=== PATIENT | female | born 1935 | race Caucasian/White ===

== ENCOUNTER 2017-08-14 13:25 | Inpatient (IN) ==
--- NOTE | 2017-08-14 14:14 | Emergency Department Note ---
Female Urogenital HPI - General Chief complaint: Urogenital-Female Stated complaint: rectal prolapse Time Seen by Provider: 08/14/17 14:05 Source: patient Mode of arrival: ambulatory Limitations: no limitations - History of Present Illness HPI Narrative: 81 year old female is complaining of rectal prolapse for 2 days. She has been seen here for the same problem but has not been able to get an appointment with [facility] per Dr. Mckinney. She states she has not had a BM for 2 weeks and has stopped eating. She states her right leg started swelling a few days ago. Dr. Aden has consulted and apparently this needs to be taken care of in [place] due to the patients risk factors and the extent of the prolapse. Radiation: non-radiating (There is rectal pain, no dysuria. ) Severity: moderate Duration: intermittent Patient : No - Related Data Previous Rx's Medication Instructions Recorded polyethylene glycol 3350 17 17 g PO QDAY #30 each 11/04/15 gram/dose oral powder albuterol sulfate HFA 90 2 puff INHALATION TID #8.5 g 12/03/16 mcg/actuation aerosol inhaler budesonide 1 mg/2 mL suspension 0.5 mg INHALATION BID 30 Days #60 12/03/16 for nebulization ml ipratropium-albuterol 0.5 mg-3 3 ml INHALATION Q6H PRN 30 Days 12/03/16 mg(2.5 mg base)/3 mL nebulization #360 ml soln pantoprazole 40 mg tablet,delayed 40 mg PO QAMAC #30 tab 12/03/16 release alendronate 70 mg tablet 70 mg PO QWEEK #4 tab 12/14/16 calcium carbonate-vitamin D3 600 1 cap PO TID 30 Days #90 cap 12/14/16 mg (1,500 mg)-500 unit capsule levothyroxine 75 mcg tablet 75 mcg PO QDAY #30 tab 03/10/17 hydrochlorothiazide 12.5 mg tablet 12.5 mg PO QDAY #30 tab 04/01/17 Docusate Sodium [Colace] 100 mg PO BID #60 capsule 06/18/17 risperidone 0.5 mg tablet 0.5 mg PO QHS #30 tab 06/21/17 venlafaxine ER 75 mg 75 mg PO DAILY #30 tab 06/21/17 tablet,extended release 24 hr Polyethylene Glycol 3350 [Miralax] 17 gm PO BID #60 packet 07/19/17 Allergies Allergy/AdvReac Type Severity Reaction Status Date / Time amlodipine AdvReac Unknown Dizziness Verified 08/10/17 10:49 Review of Systems Constitutional: Denies: fever, chills Cardiovascular: Denies: chest pain Respiratory: Denies: cough Gastrointestinal: Reports: other (rectal prolapse, severe. Unable to deficate so stopped eating) Genitourinary: Denies: dysuria Integumentary: Reports: other (swelling and erythema of the right lower extremity) Past Medical History - Past Medical History Medical history: Reports: COPD, GERD, GI bleed, glaucoma, osteoporosis, renal disease, thyroid disease, other (Rectal prolapse, hearing loss) Psychiatric history: Reports: anxiety, depression Surgical history ED: Reports: hysterectomy, orthopedic, other (Mandibular). Denies: herniorrhaphy - Social History smoking status: Current some day smoker Alcohol use: Reports: Rarely Drug use: Reports: none Physical Exam Limitations: no limitations General appearance: alert (Imaciated appearing. ), in no apparent distress Head: atraumatic, normocephalic Eye: Present: normal appearance Chest: Present: normal inspection, symmetric chest wall rise Respiratory: Present: normal lung sounds bilaterally Cardiovascular: Present: regular rate, normal rhythm Abdominal: Present: soft. Absent: distention, tenderness, guarding Rectal: Present: other (rectum is prolapsed out about [address] Mckinney was able to reduce it back inside.) Course Course Narrative: I spoke with the daughter, Isabela, and she said the appointment in [place] has never taken place due to lack of being contacted by the surgeons office. Margie is still living alone and the family is bringing her food and checking in on her. I spoke with Dr. Aden at 1522 and told him how she appears to be going downhill , unable to deficate for fear of her bowel herniating. He agreed to admit her. The patient desires to be a full code to see her grandchildren grow up. Vital Signs Temperature 97.8 F 08/14/17 13:26 Pulse Rate 80 08/14/17 13:26 Respiratory Rate 18 08/14/17 13:26 Blood Pressure 144/77 08/14/17 13:26 Pulse Oximetry (%) 98 08/14/17 13:26 Temperature 97.8 F 08/14/17 17:11 Pulse Rate 98 H 08/14/17 17:11 Respiratory Rate 16 08/14/17 17:11 Blood Pressure 163/77 08/14/17 17:11 Pulse Oximetry (%) 97 08/14/17 17:11 Urogenital-Female - Lab Data Result diagrams: 08/14/17 14:33 08/14/17 14:33 Lab Results 08/14/17 08/14/17 Range/Units 14:33 14:33 WBC 5.9 (4.5-11.0) K/mcL RBC 3.31 L (4.00-5.20) M/mcL Hgb 9.4 L (12.0-15.0) g/dL Hct 28.9 L (36.0-48.0) % MCV 87.3 (80.0-100.0) fL MCH 28.5 (26.0-34.0) pg MCHC 32.7 (31.0-36.0) g/dL RDW 13.8 (11.5-14.5) % Plt Count 566 H (140-440) K/mcL MPV 6.6 L (7.4-10.4) fL Total Counted 100 Seg Neutrophils % 56 (38-78) % Band Neutrophils % 2 (0-10) % Lymphocytes % 27 (15-49) % Monocytes % (Manual) 12 (1-12) % Eosinophils % (Manual) 3 (0-7) % Platelet Estimate Pi (NORMAL) RBC Morphology Normal (NORMAL) Sodium 142 (133-145) mmol/L Potassium 4.1 (3.3-5.1) mmol/L Chloride 104 (96-108) mmol/L Carbon Dioxide 29 (22-30) mmol/L Anion Gap 9.0 (8-16) BUN 25 H (8-23) mg/dl Creatinine 0.6 (0.6-1.1) mg/dl GFR Calculation 87 Glucose 85 (70-105) mg/dL Calcium 8.1 L (8.6-10.4) mg/dl Total Bilirubin < 0.2 (0.0-1.0) mg/dL AST 25 (0-37) U/l ALT 17 (0-40) U/l Alkaline Phosphatase 116 (39-117) U/L Total Protein 6.1 (5.9-8.4) gm/dL Albumin 3.0 L (3.2-5.2) gm/dL Globulin 3.1 (2.2-3.7) gm/dL Albumin/Globulin Ratio 1.0 (1.0-2.3) Disposition Pt seen by [facility]/PA only: No Disposition: Xfer As Inpt ([facility])
[2017-08-14 14:54] LABS: Mean Cell Volume 87.3 fL (80.0-100.0); Mean Corpuscular HGB Conc 32.7 g/dL (31.0-36.0); Mean Corpuscular Hemoglobin 28.5 pg (26.0-34.0); Platelet Count 566 K/mcL (140-440); RBC 3.31 M/mcL (4.00-5.20); Red Cell Distribution Width 13.8 % (11.5-14.5)
--- NOTE | 2017-08-14 14:59 | XRay Report ---
CLINICAL INFORMATION: Rectal prolapse. Abdominal pain. TECHNIQUE: Supine and upright abdomen COMPARISON: Previous examinations dated 08/10/2017 and 09/03/2014. Previous CT scan dated 08/12/2016 FINDINGS: Severe left convex thoracolumbar scoliosis. Findings consistent with constipation and probable distal fecal impaction. No dilated gas-filled small bowel. No mechanical small bowel obstruction. No air-fluid levels. No pneumoperitoneum. No biliary or portal venous gas. No pneumatosis. No pathologic calcifications. Abdomen is unchanged since 08/10/2017 IMPRESSION: 1. Constipation and probable fecal impaction 2. No mechanical small bowel obstruction. No acute abnormality. No interval change since 08/10/2017 Interpreted and Authenticated by: Cong Han 08/14/17
[2017-08-14 15:22] LABS: ALT/SGPT 17 U/l (0-40); Alkaline Phosphatase 116 U/L (39-117); Blood Urea Nitrogen 25 mg/dl (8-23)
[2017-08-14 15:35] LABS: Band Neutrophils % 2 % (0-10); Eosinophils % (Manual) 3 % (0-7); Lymphocytes % 27 % (15-49); Monocytes % (Manual) 12 % (1-12); Platelet Estimate PI (NORMAL); RBC Morphology NORMAL (NORMAL); Segmented Neutrophils % 56 % (38-78)
[2017-08-14] MEDS ORDERED: ONDANSETRON 4 MG/2 ML VIAL IV PRN (15:47)
[2017-08-14] MEDS: 0.9 % SODIUM CHLORIDE 1,000 ML IV SCH ×2 (15:49→17:04)
[2017-08-14] MEDS ORDERED: IPRATROPIUM/ALBUTEROL 3 ML AMPUL.NEB NEB PRN (18:27)
[2017-08-14] MEDS ORDERED: 0.9 % SODIUM CHLORIDE 250 ML IV SCH (18:30)
--- NOTE | 2017-08-14 18:37 | General Surg History&Physical ---
History of Present Illness Patient information: Note initiated : 08/14/17 at 6:35 pm Service Date, if different from initiated Date: [] Patient: Margie Palm a 81 y/o F admitted on 08/14/17 for rectal prolapse. Chief Complaint: [Rectal prolapse with intestinal obstruction] HPI: Ms. Palm is a 81 year old F who is seen in the emergency room for severe recurrent rectal prolapse. I have seen her 4 times previously. She presented in early May with large rectal prolapse. She has had 5 ER visits since then with reduction of the prolapse but it has become worse and it now protrudes whenever she stands up. It does not spontaneously resolve. She states that she has had complete prolapse for the past 3 days and has had decreased p.o. intake which has resulted in dehydration. She has not had a bowel movement for 2 weeks and she has crampy abdominal pain and severe. Anal pain due to the prolapse. The prolapsed tissue is severely edematous and extremely painful. There are no apparent ulcerations. Patient is admitted and I will discuss with the family the need for operative therapy. With the severity of her anal sphincter laxity it would be best for her to have a colostomy. Review of Systems - Constitutional lethargy, malaise, weakness, weight loss - EENT Nose, mouth and throat: abnormal hearing, disequilibrium, dizziness (Really) - Cardiovascular dyspnea, dyspnea on exertion, edema - Respiratory dyspnea on exertion, other (Shortness of breath) - Gastrointestinal abdominal pain, hematochezia, other (Recurrent rectal prolapse) - Genitourinary Genitourinary: pelvic pain, prolapse symptoms, urinary incontinence, urinary urgency - Musculoskeletal abnormal gait, arthralgias, joint swelling, loss of height, myalgias, stiffness , other (Severe scoliosis) - Integumentary no changing lesions, no new lesions, no pruritus, no rash - Neurological abnormal hearing, disequilibrium, loss of vision - Psychiatric abnormal sleep pattern, auditory hallucinations, confusion, hallucinations - Endocrine fatigue, no palpitations - Hematologic/Lymphatic no easy bleeding, no easy bruising, no lymphadenopathy - Allergic/Immunologic no tongue swelling, no throat swelling, no uticaria, no wheezing, no lip swelling Past History Past medical history: Chronic obstructive lung disease Chronic depression Constipation Severe scoliosis Gastroesophageal reflux disease Left eye retinal artery occlusion Chronic kidney disease 4 Peripheral neuropathy Auditory hallucinations Hypothyroidism Past surgical history: Hysterectomy Mandibular surgery Ear surgery Past family history: Coronary artery disease multiple family members Diabetes mellitus Past social history: Lives alone Former smoker Denies alcohol use Denies drug use Medications and Allergies Home Medications Medication Instructions Recorded Confirmed Type albuterol sulfate HFA 90 2 puff INHALATION TID #8.5 g 12/03/16 08/14/17 Rx mcg/actuation aerosol inhaler pantoprazole 40 mg tablet,delayed 40 mg PO QAMAC #30 tab 12/03/16 08/14/17 Rx release alendronate 70 mg tablet 70 mg PO QWEEK #4 tab 12/14/16 08/14/17 Rx calcium carbonate-vitamin D3 600 1 cap PO TID 30 Days #90 cap 12/14/16 08/14/17 Rx mg (1,500 mg)-500 unit capsule levothyroxine 75 mcg tablet 75 mcg PO QDAY #30 tab 03/10/17 08/14/17 Rx Docusate Sodium [Colace] 100 mg PO BID #60 capsule 06/18/17 08/14/17 Rx risperidone 0.5 mg tablet 0.5 mg PO QHS #30 tab 06/21/17 08/14/17 Rx venlafaxine ER 75 mg 75 mg PO DAILY #30 tab 06/21/17 08/14/17 Rx tablet,extended release 24 hr Polyethylene Glycol 3350 [Miralax] 17 gm PO BID #60 packet 07/19/17 08/14/17 Rx Multivitamin [One Daily] 1 tab PO DAILY 08/15/17 08/15/17 History Allergies Allergy/AdvReac Type Severity Reaction Status Date / Time amlodipine AdvReac Unknown Dizziness Verified 08/10/17 10:49 Exam Temp Pulse Resp BP Pulse Ox 97.8 F 98 H 16 163/77 97 08/14/17 17:11 08/14/17 17:11 08/14/17 17:11 08/14/17 17:11 08/14/17 17:11 - General physical appearance cachectic, chronically ill - Eyes normal ocular movement, other (Absent vision left eye) - ENT normal pinna, normal nares, normal mucosa, decreased hearing - Head Head exam IM: Present: atraumatic, normal inspection, normocephalic - Neck no masses, no bruits, trachea midline, no venous distension - Cardiovascular Cardiovascular exam IM: Present: normal rate and rhythm, JVD, RRR, +S1, +S2. Absent: gallop, systolic murmur, tachycardia - Respiratory normal expansion, normal respiratory effort, clear to auscultation - Abdomen Abdomen: Present: soft, tender, distended (Abdomen is distended across the upper portion in line with dilated colon; active bowel sounds; mild tenderness over upper abdomen; no palpable mass) - Rectum Rectum: Present: other (Absent anal sphincter tone with complete anal rectal prolapse extending 10 cm with excoriation of the prolapsed mucosa and oozing of blood) - Integumentary Present: no rash, no growths, no abnormal pigmentation - Neurologic Present: normal coordination, normal sensation - Musculoskeletal Present: other (Moderately severe scoliosis) - Psychiatric Present: oriented to time, oriented to person Assessment and Plan (1) Constipation by delayed colonic transit Make plans to discuss with family the need for end colostomy and plication of her rectal stump; prolapse temporarily reduce but it does not stay in as long as she is up and mobile Status: Acute (2) Rectal prolapse Status: Acute (3) Chronic kidney disease, stage IV (severe) Status: Chronic (4) COPD (chronic obstructive pulmonary disease) Status: Chronic Comment: 11/2012 Mild obstruction consistent with emphysema (5) Dehydration, mild Status: Acute (6) Depression Status: Chronic Comment: 1960s Managed well with venlafaxine Qualifiers: Depression Type: major depressive disorder Major depression recurrence: recurrent Active/Remission status: currently active Major depression episode severity: mild Qualified Code(s): F33.0 - Major depressive disorder, recurrent, mild (7) Gastroesophageal reflux Status: Chronic Qualifiers: Esophagitis presence: with esophagitis Qualified Code(s): K21.0 - Gastro- esophageal reflux disease with esophagitis (8) Weight loss Status: Chronic
[2017-08-14] MEDS ORDERED: ZOLPIDEM 5 MG TABLET PO PRN (18:48)
--- NOTE | 2017-08-14 18:52 | Emergency Department Note ---
ED Note Addendum Note Addendum: rectal prolAPSE WAS REDUCED EASILY WITHOUT CONSCIOUS SEDATION. CASE DISCUSSED WITH [facility] Stock PT URBAN BE ADMITTED. AGREE WITH DX AND RX.
[2017-08-14] MEDS: risperiDONE 0.25 MG TABLET PO SCH (21:20)
[2017-08-14] MEDS: POLYETHYLENE GLYCOL 3350 17 GM PACKET PO SCH (21:20)
[2017-08-14] MEDS: ALBUTEROL SULFATE 1 PUFF INHALER IH SCH (21:21)
[2017-08-15] MEDS: 0.9 % SODIUM CHLORIDE 1,000 ML IV SCH ×4 (03:44→17:16)
[2017-08-15 05:56] LABS: proBNP 255.9 pg/ml (0-450)
[2017-08-15 06:16] LABS: ALT/SGPT 15 U/l (0-40); Albumin 2.5 gm/dL (3.2-5.2); Albumin/Globulin Ratio 0.9 (1.0-2.3); Alkaline Phosphatase 105 U/L (39-117); Bilirubin,Direct < 0.2 mg/dL (0.0-0.3); Blood Urea Nitrogen 19 mg/dl (8-23); Gamma Glutamyl Transpeptidase 13 U/L (5-36); Uric Acid 2.5 mg/dL (2.5-8.0)
[2017-08-15 06:17] LABS: Prealbumin 13.3 mg/dl (20-40)
[2017-08-15] MEDS: PANTOPRAZOLE 40 MG TABLET PO SCH (07:01)
[2017-08-15] MEDS: LEVOTHYROXINE 75 MCG TABLET PO SCH (07:01)
[2017-08-15] MEDS: VENLAFAXINE 75 MG CAP.XL.24H PO SCH (08:53)
[2017-08-15] MEDS: POLYETHYLENE GLYCOL 3350 17 GM PACKET PO SCH ×2 (08:53→20:24)
[2017-08-15] MEDS: ALBUTEROL SULFATE 1 PUFF INHALER IH SCH ×3 (08:53→20:24)
--- NOTE | 2017-08-15 09:05 | XRay Report ---
INDICATION: Preoperative evaluation TECHNIQUE: AP chest x-ray,portable COMPARISON: Previous chest x-rays dated 04/14/2017, 08/10/2014, 09/11/2013. Previous CT scan dated 12/14/2016 FINDINGS:Severe left convex thoracolumbar scoliosis, unchanged Focal density at the left lung base consistent with chronic left lower lobe atelectasis. This is also stable No acute parenchymal infiltrate. No pulmonary congestion or pulmonary edema. No significant interval change IMPRESSION: 1. Focal density at the left lung base consistent with left lower lobe atelectasis 2. No acute abnormality. No interval change Interpreted and Authenticated by: Cong Han 08/15/17
--- NOTE | 2017-08-15 13:51 | General Surgery Progress Note ---
Subjective Patient reports: feels better, pain is less, tolerating liquids well, no flatus , no bowel movement, afebrile Narrative: Note initiated : 08/15/17 at 1:49 pm Service Date, if different from initiated Date: [] Patient: Margie Palm 81 y/o F admitted on 08/14/17 for rectal prolapse. Chief Complaint: [Patient is stable but she had significant prolapse of her rectum which needed to be reduced. It reduced without difficulty. I had a long talk with her extended family. Discussed the need for colostomy with proctopexy of the rectal stump as the surgery of choice. This would have the less chance for major complications and should not need reoperation. The procedure will be permanent. She has finally accepted the need to have the procedure and it will be scheduled for Wednesday.] Objective Temp Pulse Resp BP Pulse Ox 98.1 F 78 20 145/67 94 08/15/17 11:40 08/15/17 11:40 08/15/17 11:40 08/15/17 11:40 08/15/17 11:40 - Additional Data Intake & Output - Last 24 hours: Intake & Output 08/13/17 08/14/17 08/15/17 08/16/17 05:59 05:59 05:59 05:59 Intake Total 1274 / 1274 480 / 480 Output Total 750 / 750 Balance 1274 / 1274 -270 / -270 Weight 82 lb - General physical appearance no distress, moderate pain, chronically ill - Eyes PERRL - ENT no congestion - Neck no venous distension - Respiratory normal expansion, normal respiratory effort, clear to auscultation - Cardiovascular Cardiovascular exam: Present: normal rate and rhythm, RRR, +S1, +S2. Absent: gallop, JVD - Abdomen soft, distended (Abdomen is mildly distended and tympanitic. She has good active bowel sounds. There is tenderness over the dilated colon.) - Rectum other (4+ major full-thickness prolapse of anal rectal which is reducible; the prolapsed tissue is very edematous and irritated) - Integumentary no rash, no growths, no abnormal pigmentation - Neurologic normal coordination, normal sensation - Musculoskeletal normal gait, normal posture - Labs 08/14/17 14:33 08/15/17 04:30 Diabetes panel 08/14/17 08/15/17 Range/Units 14:33 04:30 Sodium 142 144 (133-145) mmol/L Potassium 4.1 3.9 (3.3-5.1) mmol/L Chloride 104 108 (96-108) mmol/L Carbon Dioxide 29 27 (22-30) mmol/L BUN 25 H 19 (8-23) mg/dl Creatinine 0.6 0.6 (0.6-1.1) mg/dl Glucose 85 80 (70-105) mg/dL Calcium 8.1 L 8.0 L (8.6-10.4) mg/dl AST 25 22 (0-37) U/l ALT 17 15 (0-40) U/l Alkaline Phosphatase 116 105 (39-117) U/L Total Protein 6.1 5.2 L (5.9-8.4) gm/dL Albumin 3.0 L 2.5 L (3.2-5.2) gm/dL Triglycerides 74 (<150) mg/dl Calcium panel 08/14/17 08/15/17 Range/Units 14:33 04:30 Calcium 8.1 L 8.0 L (8.6-10.4) mg/dl Phosphorus 3.0 (2.7-4.5) mg/dL Albumin 3.0 L 2.5 L (3.2-5.2) gm/dL Pituitary panel 08/14/17 08/15/17 Range/Units 14:33 04:30 Sodium 142 144 (133-145) mmol/L Potassium 4.1 3.9 (3.3-5.1) mmol/L Chloride 104 108 (96-108) mmol/L Carbon Dioxide 29 27 (22-30) mmol/L BUN 25 H 19 (8-23) mg/dl Creatinine 0.6 0.6 (0.6-1.1) mg/dl Glucose 85 80 (70-105) mg/dL Calcium 8.1 L 8.0 L (8.6-10.4) mg/dl Adrenal panel 08/14/17 08/15/17 Range/Units 14:33 04:30 Sodium 142 144 (133-145) mmol/L Potassium 4.1 3.9 (3.3-5.1) mmol/L Chloride 104 108 (96-108) mmol/L Carbon Dioxide 29 27 (22-30) mmol/L BUN 25 H 19 (8-23) mg/dl Creatinine 0.6 0.6 (0.6-1.1) mg/dl Glucose 85 80 (70-105) mg/dL Calcium 8.1 L 8.0 L (8.6-10.4) mg/dl Total Bilirubin < 0.2 0.2 (0.0-1.0) mg/dL AST 25 22 (0-37) U/l ALT 17 15 (0-40) U/l Alkaline Phosphatase 116 105 (39-117) U/L Total Protein 6.1 5.2 L (5.9-8.4) gm/dL Albumin 3.0 L 2.5 L (3.2-5.2) gm/dL Assessment and Plan (1) Constipation by delayed colonic transit Status: Acute Current Visit: Yes (2) Rectal prolapse Status: Acute Assessment and plan: Patient is finally convinced to have colostomy with proctopexy of the Galeana's pouch as a permanent procedure. It is scheduled for Wednesday. Current Visit: No (3) Chronic kidney disease, stage IV (severe) Status: Chronic Assessment and plan: BUN is significantly improved and urinary output has increased Current Visit: No (4) COPD (chronic obstructive pulmonary disease) Problem details: 11/2012 Mild obstruction consistent with emphysema Status: Chronic Current Visit: No - Time Spent With Patient Total time spent is greater than 50% in coordination of care (as documented) at patient's floor/unit and/or counseling patient:
[2017-08-15] MEDS: oxyCODONE/APAP 5/325MG TABLET PO PRN (18:34)
[2017-08-15] MEDS: risperiDONE 0.25 MG TABLET PO SCH (20:24)
[2017-08-16] MEDS: 0.9 % SODIUM CHLORIDE 1,000 ML IV SCH ×4 (06:10→23:27)
[2017-08-16] MEDS: LEVOTHYROXINE 75 MCG TABLET PO SCH (07:50)
[2017-08-16] MEDS: PANTOPRAZOLE 40 MG TABLET PO SCH (07:50)
[2017-08-16] MEDS: POLYETHYLENE GLYCOL 3350 17 GM PACKET PO SCH ×2 (09:22→20:52)
[2017-08-16] MEDS: VENLAFAXINE 75 MG CAP.XL.24H PO SCH (09:22)
[2017-08-16] MEDS: ALBUTEROL SULFATE 1 PUFF INHALER IH SCH ×3 (13:51→20:52)
--- NOTE | 2017-08-16 14:48 | General Surgery Progress Note ---
Subjective Patient reports: feels better, pain is less, tolerating liquids well, flatus, no bowel movement, afebrile Narrative: Note initiated : 08/16/17 at 2:45 pm Service Date, if different from initiated Date: [] Patient: Margie Palm 81 y/o F admitted on 08/14/17 for Rectal Prolapse/ Constipation by Delayed Transit. Chief Complaint: [Patient is stable. She is bright and alert and aware. Discussed with her the need for surgery tomorrow and she remains agreeable. She understands that the colostomy will be permanent and she states that she accepts it If it will keep her out of the hospital .. Her rectum is partially prolapsed. She has had some flatus today.] Objective Temp Pulse Resp BP Pulse Ox 98.3 F 69 12 142/74 95 08/16/17 11:26 08/16/17 03:25 08/16/17 11:26 08/16/17 11:26 08/16/17 11:26 - Additional Data Intake & Output - Last 24 hours: Intake & Output 08/14/17 08/15/17 08/16/17 08/17/17 05:59 05:59 05:59 05:59 Intake Total 1274 / 1274 1875 / 1875 979 / 979 Output Total 1225 / 1225 850 / 850 Balance 1274 / 1274 650 / 650 129 / 129 Weight 82 lb 85 lb 8 oz 85 lb 8 oz - General physical appearance no distress, cachectic, chronically ill - Eyes normal ocular movement - ENT no congestion - Neck no venous distension - Respiratory normal expansion, clear to percussion, clear to auscultation - Cardiovascular Cardiovascular exam: Present: normal rate and rhythm (She looks younger than she ), JVD, RRR (Is a good), +S1, +S2 - Abdomen soft, tender, bowel sounds (Hyperactive bowel sounds), distended (Moderate distention) - Rectum other (Absent anal sphincter tone with the prolapsed rectum) - Integumentary no rash, no growths, no abnormal pigmentation - Neurologic normal coordination, normal sensation - Musculoskeletal normal gait, normal posture - Psychiatric oriented to time, oriented to person, oriented to place, speech is normal, memory intact - Labs 08/14/17 14:33 08/15/17 04:30 Assessment and Plan (1) Constipation by delayed colonic transit Status: Acute Current Visit: Yes (2) Rectal prolapse Status: Acute Assessment and plan: Patient is finally convinced to have colostomy with proctopexy of the Galeana's pouch as a permanent procedure. It is scheduled for The a.m. Current Visit: No (3) Chronic kidney disease, stage IV (severe) Status: Chronic Assessment and plan: BUN is significantly improved and urinary output has increased Current Visit: No (4) COPD (chronic obstructive pulmonary disease) Problem details: 11/2012 Mild obstruction consistent with emphysema Status: Chronic Current Visit: No (5) Dehydration, mild Status: Resolved Assessment and plan: Resolved Current Visit: Yes (6) Depression Problem details: 1960s Managed well with venlafaxine Status: Chronic Current Visit: No (7) Gastroesophageal reflux Status: Chronic Current Visit: No (8) Weight loss Status: Chronic Current Visit: No - Time Spent With Patient Total time spent is greater than 50% in coordination of care (as documented) at patient's floor/unit and/or counseling patient:
[2017-08-16] MEDS: risperiDONE 0.25 MG TABLET PO SCH (20:52)
--- NOTE | 2017-08-17 07:33 | General Surgery Progress Note ---
Subjective Patient reports: feels better, still having pain, afebrile Narrative: Note initiated : 08/17/17 at 7:29 am Service Date, if different from initiated Date: [] Patient: Margie Palm 81 y/o F admitted on 08/14/17 for Rectal Prolapse/ Constipation by Delayed Transit. Chief Complaint: [patients surgery postponed due to recent change in ECG. Will arrange for echo cardiogram and nuclear stress test as soon as possible. hopefuly she can be done on OR WEDNESDAY. SHE IS ASYMPTOMATIC AND HAS NO COMPLAINTS.] Objective Temp Pulse Resp BP Pulse Ox 97.8 F 77 24 H 174/83 94 08/17/17 04:00 08/17/17 04:00 08/17/17 04:00 08/17/17 04:00 08/17/17 04:00 - Additional Data Intake & Output - Last 24 hours: Intake & Output 08/15/17 08/16/17 08/17/17 08/18/17 05:59 05:59 05:59 05:59 Intake Total 1274 / 1274 1875 / 1875 2531 / 2531 Output Total 1225 / 1225 3200 / 3200 Balance 1274 / 1274 650 / 650 -669 / -669 Weight 82 lb 85 lb 8 oz 87 lb - Labs 08/14/17 14:33 08/15/17 04:30 Assessment and Plan (1) Abnormal electrocardiogram [ECG] [EKG] Status: Acute Assessment and plan: ECHOCARDIOGRAM NUCLEAR STRESS TEST POSSIBLE SCHEDULE SURGERY FOR WEDNESDAY OR WEDNESDAY Current Visit: Yes (2) Constipation by delayed colonic transit Status: Acute Current Visit: Yes (3) Rectal prolapse Status: Acute Assessment and plan: Patient is finally convinced to have colostomy with proctopexy of the Galaena's pouch as a permanent procedure. It is scheduled for The a.m. Current Visit: No (4) Chronic kidney disease, stage IV (severe) Status: Chronic Assessment and plan: BUN is significantly improved and urinary output has increased Current Visit: No (5) COPD (chronic obstructive pulmonary disease) Problem details: 11/2012 Mild obstruction consistent with emphysema Status: Chronic Current Visit: No (6) Dehydration, mild Status: Resolved Assessment and plan: Resolved Current Visit: Yes (7) Depression Problem details: 1960s Managed well with venlafaxine Status: Chronic Current Visit: No (8) Gastroesophageal reflux Status: Chronic Current Visit: No (9) Weight loss Status: Chronic Current Visit: No - Time Spent With Patient Total time spent is greater than 50% in coordination of care (as documented) at patient's floor/unit and/or counseling patient:
[2017-08-17] MEDS: PANTOPRAZOLE 40 MG TABLET PO SCH (07:35)
[2017-08-17] MEDS: LEVOTHYROXINE 75 MCG TABLET PO SCH (07:35)
[2017-08-17] MEDS: VENLAFAXINE 75 MG CAP.XL.24H PO SCH (08:41)
[2017-08-17] MEDS: POLYETHYLENE GLYCOL 3350 17 GM PACKET PO SCH ×2 (08:41→20:20)
[2017-08-17] MEDS: 0.9 % SODIUM CHLORIDE 1,000 ML IV SCH ×2 (08:41→22:52)
[2017-08-17] MEDS: ALBUTEROL SULFATE 1 PUFF INHALER IH SCH ×3 (09:49→20:21)
[2017-08-17] MEDS: risperiDONE 0.25 MG TABLET PO SCH (20:20)
[2017-08-18] MEDS: VENLAFAXINE 75 MG CAP.XL.24H PO SCH (07:19)
[2017-08-18] MEDS: PANTOPRAZOLE 40 MG TABLET PO SCH (07:19)
[2017-08-18] MEDS: LEVOTHYROXINE 75 MCG TABLET PO SCH (07:19)
[2017-08-18] MEDS: ALBUTEROL SULFATE 1 PUFF INHALER IH SCH ×3 (09:21→21:34)
[2017-08-18] MEDS: POLYETHYLENE GLYCOL 3350 17 GM PACKET PO SCH ×2 (09:21→21:29)
[2017-08-18 09:40] LABS: Basophils # (Auto) 0 K/mcL (0.0-0.3); Basophils % (Auto) 0.5 % (0.0-2.0); Eosinophils # (Auto) 0.2 K/mcL (0.0-0.7); Eosinophils % (Auto) 4.3 % (0.0-7.0); Granulocytes % (Auto) 72.5 % (38.0-78.0); Lymphocytes # (Auto) 0.8 K/mcL (1.5-4.8); Lymphocytes % (Auto) 16.4 % (15.5-49.0); Mean Corpuscular Hemoglobin 28.7 pg (26.0-34.0); Monocytes # (Auto) 0.3 K/mcL (0.1-0.9); Monocytes % (Auto) 6.3 % (1.0-12.0); Platelet Count 496 K/mcL (140-440); RBC 3.31 M/mcL (4.00-5.20); Red Cell Distribution Width 13.6 % (11.5-14.5)
[2017-08-18 10:16] LABS: ALT/SGPT 15 U/l (0-40); Albumin 2.6 gm/dL (3.2-5.2); Albumin/Globulin Ratio 0.9 (1.0-2.3); Alkaline Phosphatase 126 U/L (39-117); Bilirubin,Direct < 0.2 mg/dL (0.0-0.3); Blood Urea Nitrogen 10 mg/dl (8-23); Gamma Glutamyl Transpeptidase 15 U/L (5-36); Magnesium 1.8 mg/dL (1.6-2.5); Uric Acid 2.4 mg/dL (2.5-8.0)
--- NOTE | 2017-08-18 13:35 | General Surgery Progress Note ---
Subjective Patient reports: feels better, pain is less, flatus, afebrile Narrative: Note initiated : 08/18/17 at 1:34 pm Service Date, if different from initiated Date: [] Patient: Margie Palm 81 y/o F admitted on 08/14/17 for Rectal Prolapse/ Constipation by Delayed Transit. Chief Complaint: [Patient is stable she is waiting to be transferred to [facility] to complete her stress test. Her echocardiogram looks very good without any abnormalities and with good ejection fraction greater than 70%. She has her ongoing problems with prolapse but it is easily reducible at this time.] Objective Temp Pulse Resp BP Pulse Ox 99.2 F H 69 16 152/71 95 08/18/17 11:20 08/18/17 03:12 08/18/17 11:20 08/18/17 11:20 08/18/17 11:20 - Additional Data Intake & Output - Last 24 hours: Intake & Output 08/16/17 08/17/17 08/18/17 08/19/17 05:59 05:59 05:59 05:59 Intake Total 1875 / 1875 2531 / 2531 3176 / 3176 Output Total 1225 / 1225 3200 / 3200 3225 / 3225 550 / 550 Balance 650 / 650 -669 / -669 -49 / -49 -550 / -550 Weight 85 lb 8 oz 87 lb 94 lb - General physical appearance well developed, no distress, chronically ill - Eyes PERRL - ENT no congestion - Neck no venous distension - Respiratory normal expansion, normal respiratory effort, clear to auscultation - Cardiovascular Cardiovascular exam: Present: normal rate and rhythm, RRR, +S1, +S2. Absent: JVD - Abdomen soft, non tender (Hyperactive bowel sounds with dilated colon but no associated tenderness) - Rectum other ( prolapsed rectum that is easily reducible) - Integumentary no rash, no growths, no abnormal pigmentation - Neurologic normal coordination, normal sensation - Labs 08/18/17 08:22 08/18/17 08:22 Diabetes panel 08/18/17 Range/Units 08:22 Sodium 141 (133-145) mmol/L Potassium 3.4 (3.3-5.1) mmol/L Chloride 103 (96-108) mmol/L Carbon Dioxide 26 (22-30) mmol/L BUN 10 (8-23) mg/dl Creatinine 0.7 (0.6-1.1) mg/dl Glucose 151 H (70-105) mg/dL Calcium 8.1 L (8.6-10.4) mg/dl AST 24 (0-37) U/l ALT 15 (0-40) U/l Alkaline Phosphatase 126 H (39-117) U/L Total Protein 5.5 L (5.9-8.4) gm/dL Albumin 2.6 L (3.2-5.2) gm/dL Triglycerides 91 (<150) mg/dl Calcium panel 08/18/17 Range/Units 08:22 Calcium 8.1 L (8.6-10.4) mg/dl Phosphorus 2.9 (2.7-4.5) mg/dL Albumin 2.6 L (3.2-5.2) gm/dL Pituitary panel 08/18/17 Range/Units 08:22 Sodium 141 (133-145) mmol/L Potassium 3.4 (3.3-5.1) mmol/L Chloride 103 (96-108) mmol/L Carbon Dioxide 26 (22-30) mmol/L BUN 10 (8-23) mg/dl Creatinine 0.7 (0.6-1.1) mg/dl Glucose 151 H (70-105) mg/dL Calcium 8.1 L (8.6-10.4) mg/dl Adrenal panel 08/18/17 Range/Units 08:22 Sodium 141 (133-145) mmol/L Potassium 3.4 (3.3-5.1) mmol/L Chloride 103 (96-108) mmol/L Carbon Dioxide 26 (22-30) mmol/L BUN 10 (8-23) mg/dl Creatinine 0.7 (0.6-1.1) mg/dl Glucose 151 H (70-105) mg/dL Calcium 8.1 L (8.6-10.4) mg/dl Total Bilirubin < 0.2 (0.0-1.0) mg/dL AST 24 (0-37) U/l ALT 15 (0-40) U/l Alkaline Phosphatase 126 H (39-117) U/L Total Protein 5.5 L (5.9-8.4) gm/dL Albumin 2.6 L (3.2-5.2) gm/dL Assessment and Plan (1) Abnormal electrocardiogram [ECG] [EKG] Status: Acute Assessment and plan: ECHOCARDIOGRAM NUCLEAR STRESS TEST POSSIBLE SCHEDULE SURGERY FOR WEDNESDAY Current Visit: Yes (2) Constipation by delayed colonic transit Status: Acute Current Visit: Yes (3) Rectal prolapse Status: Acute Assessment and plan: Patient is finally convinced to have colostomy with proctopexy of the Galeana's pouch as a permanent procedure. It is scheduled for Wednesday Current Visit: No (4) Chronic kidney disease, stage IV (severe) Status: Chronic Assessment and plan: BUN is significantly improved and urinary output has increased Current Visit: No (5) COPD (chronic obstructive pulmonary disease) Problem details: 11/2012 Mild obstruction consistent with emphysema Status: Chronic Current Visit: No (6) Dehydration, mild Status: Resolved Assessment and plan: Resolved Current Visit: Yes (7) Depression Problem details: 1960s Managed well with venlafaxine Status: Chronic Current Visit: No (8) Gastroesophageal reflux Status: Chronic Current Visit: No (9) Weight loss Status: Chronic Current Visit: No - Time Spent With Patient Total time spent is greater than 50% in coordination of care (as documented) at patient's floor/unit and/or counseling patient:
[2017-08-18] MEDS: 0.9 % SODIUM CHLORIDE 1,000 ML IV SCH (15:16)
[2017-08-18] MEDS: risperiDONE 0.25 MG TABLET PO SCH (21:28)
[2017-08-18] MEDS: oxyCODONE/APAP 5/325MG TABLET PO PRN (21:29)
[2017-08-19] MEDS: 0.9 % SODIUM CHLORIDE 1,000 ML IV SCH ×3 (04:47→15:06)
[2017-08-19] MEDS: LEVOTHYROXINE 75 MCG TABLET PO SCH (07:17)
[2017-08-19] MEDS: PANTOPRAZOLE 40 MG TABLET PO SCH (07:17)
[2017-08-19] MEDS: ALBUTEROL SULFATE 1 PUFF INHALER IH SCH ×3 (08:14→20:20)
[2017-08-19] MEDS: VENLAFAXINE 75 MG CAP.XL.24H PO SCH (08:14)
[2017-08-19] MEDS: POLYETHYLENE GLYCOL 3350 17 GM PACKET PO SCH ×2 (08:14→20:20)
--- NOTE | 2017-08-19 13:06 | General Surgery Progress Note ---
Subjective Patient reports: feels better, pain is less, tolerating liquids well, flatus, afebrile Narrative: Note initiated : 08/19/17 at 1:04 pm Service Date, if different from initiated Date: [] Patient: Margie Palm 81 y/o F admitted on 08/14/17 for Rectal Prolapse/ Constipation by Delayed Transit. Chief Complaint: [Patient is doing well. She completed her cardiac studies on yesterday the echocardiogram showed no wall abnormalities or valvular abnormalities with left ventricular ejection fraction of 70%. Her stress test was negative for induced myocardial ischemia with ejection fraction greater than 70%. She is counseled to have her surgery in the morning with the plan to proceed with segmental colectomy with colostomy and plication of her rectal stump to her sacrum. I discussed this again with the patient and her sons and they are agreeable to proceed.] Objective Temp Pulse Resp BP Pulse Ox 97.1 F 69 16 126/65 94 08/19/17 11:57 08/19/17 04:00 08/19/17 11:57 08/19/17 11:57 08/19/17 11:57 - Additional Data Intake & Output - Last 24 hours: Intake & Output 08/17/17 08/18/17 08/19/17 08/20/17 05:59 05:59 05:59 05:59 Intake Total 2531 / 2531 3176 / 3176 2420 / 2420 Output Total 3200 / 3200 3225 / 3225 1575 / 1575 Balance -669 / -669 -49 / -49 845 / 845 Weight 87 lb 94 lb 97 lb - General physical appearance no pain, chronically ill - Eyes PERRL - ENT no congestion - Neck no venous distension - Respiratory normal respiratory effort, clear to auscultation - Cardiovascular Cardiovascular exam: Present: normal rate and rhythm, RRR, +S1, +S2. Absent: JVD, tachycardia - Abdomen soft, non tender (Abdomen is distended with palpable colon across her upper abdomen. She has hyperactive bowel sounds. She does not have any tenderness. She intermittently passes flatus.) - Rectum other ( Partial prolapse of rectal) - Integumentary no rash, no growths, no abnormal pigmentation - Neurologic normal coordination, normal sensation - Psychiatric oriented to time, oriented to person, oriented to place, speech is normal, memory intact - Labs 08/18/17 08:22 08/18/17 08:22 Assessment and Plan (1) Abnormal electrocardiogram [ECG] [EKG] Status: Acute Assessment and plan: Echocardiogram and nuclear stress test showed normal We will proceed with operative care in the morning Current Visit: Yes (2) Constipation by delayed colonic transit Status: Acute Current Visit: Yes (3) Rectal prolapse Status: Acute Assessment and plan: Patient is finally convinced to have colostomy with proctopexy of the Galeana's pouch as a permanent procedure. It is scheduled for Wednesday Current Visit: No (4) Chronic kidney disease, stage IV (severe) Status: Chronic Assessment and plan: BUN is significantly improved and urinary output has increased Current Visit: No (5) COPD (chronic obstructive pulmonary disease) Problem details: 11/2012 Mild obstruction consistent with emphysema Status: Chronic Current Visit: No (6) Dehydration, mild Status: Resolved Assessment and plan: Resolved Current Visit: Yes (7) Depression Problem details: 1960s Managed well with venlafaxine Status: Chronic Current Visit: No (8) Gastroesophageal reflux Status: Chronic Current Visit: No (9) Weight loss Status: Chronic Current Visit: No - Time Spent With Patient Total time spent is greater than 50% in coordination of care (as documented) at patient's floor/unit and/or counseling patient:
[2017-08-19] MEDS: risperiDONE 0.25 MG TABLET PO SCH (20:20)
[2017-08-20] MEDS: oxyCODONE/APAP 5/325MG TABLET PO PRN (01:56)
[2017-08-20] MEDS: 0.9 % SODIUM CHLORIDE 1,000 ML IV SCH ×3 (04:12→10:44)
[2017-08-20 05:46] LABS: Basophils # (Auto) 0 K/mcL (0.0-0.3); Basophils % (Auto) 0.5 % (0.0-2.0); Eosinophils # (Auto) 0.4 K/mcL (0.0-0.7); Eosinophils % (Auto) 7.5 % (0.0-7.0); Granulocytes % (Auto) 53.5 % (38.0-78.0); Lymphocytes # (Auto) 1.6 K/mcL (1.5-4.8); Lymphocytes % (Auto) 29.1 % (15.5-49.0); Mean Cell Volume 86.2 fL (80.0-100.0); Mean Corpuscular HGB Conc 32.6 g/dL (31.0-36.0); Mean Corpuscular Hemoglobin 28.1 pg (26.0-34.0); Monocytes # (Auto) 0.5 K/mcL (0.1-0.9); Monocytes % (Auto) 9.4 % (1.0-12.0); Platelet Count 467 K/mcL (140-440); RBC 3.16 M/mcL (4.00-5.20); Red Cell Distribution Width 13.5 % (11.5-14.5)
[2017-08-20 06:20] LABS: ALT/SGPT 13 U/l (0-40); Albumin 2.7 gm/dL (3.2-5.2); Albumin/Globulin Ratio 1.1 (1.0-2.3); Alkaline Phosphatase 111 U/L (39-117); Bilirubin,Direct < 0.2 mg/dL (0.0-0.3); Blood Urea Nitrogen 11 mg/dl (8-23); Gamma Glutamyl Transpeptidase 15 U/L (5-36); Magnesium 1.8 mg/dL (1.6-2.5)
[2017-08-20] MEDS: PANTOPRAZOLE 40 MG TABLET PO SCH (08:10)
[2017-08-20] MEDS: ALBUTEROL SULFATE 1 PUFF INHALER IH SCH ×3 (08:10→23:40)
[2017-08-20] MEDS: LEVOTHYROXINE 75 MCG TABLET PO SCH (08:10)
[2017-08-20] MEDS: POLYETHYLENE GLYCOL 3350 17 GM PACKET PO SCH (08:10)
[2017-08-20] MEDS: VENLAFAXINE 75 MG CAP.XL.24H PO SCH (08:10)
[2017-08-20] MEDS ORDERED: fentaNYL 100 MCG/2 ML VIAL IV ONE (08:15)
[2017-08-20] MEDS ORDERED: ROCURONIUM 10 MG/ML ML IV ONE (08:15)
[2017-08-20] MEDS ORDERED: DEXAMETHASONE 10 MG/ML VIAL IV ONE (08:15)
[2017-08-20] MEDS ORDERED: ONDANSETRON 4 MG/2 ML VIAL IV ONE (08:15)
[2017-08-20] MEDS ORDERED: GLYCOPYRROLATE 0.2 MG/ML VIAL IV ONE (08:15)
[2017-08-20] MEDS ORDERED: NEOSTIGMINE 1 MG/ML VIAL IV ONE (08:15)
[2017-08-20] MEDS ORDERED: PROPOFOL 200 MG/20 ML VIAL IV ONE (08:15)
[2017-08-20] MEDS ORDERED: LIDOCAINE HCL/PF 100 MG/5 ML SYRINGE IV ONE (08:15)
[2017-08-20] MEDS ORDERED: PIPERACILLIN SODIUM/TAZOBACTAM 3.375 GM in DEXTROSE 5% IN WATER 100 ML IV SCH (09:00)
[2017-08-20] MEDS ORDERED: fentaNYL 100 MCG/2 ML VIAL IV PRN (09:10)
[2017-08-20] MEDS ORDERED: LACTATED RINGERS 250 ML IV PRN (09:10)
[2017-08-20] MEDS ORDERED: NALOXONE HCL 0.4 MG/ML VIAL IV PRN (09:10)
[2017-08-20] MEDS ORDERED: IPRATROPIUM/ALBUTEROL 3 ML AMPUL.NEB NEB PRN ×2 (09:10→10:35)
[2017-08-20] MEDS ORDERED: MEPERIDINE 25 MG/ML SYRINGE IV PRN (09:10)
[2017-08-20] MEDS ORDERED: PROMETHAZINE 25 MG/ML VIAL IV PRN (09:10)
[2017-08-20] MEDS ORDERED: ACETAMINOPHEN 650 MG/65 ML BOTTLE IV ONE (09:10)
[2017-08-20] MEDS ORDERED: ONDANSETRON 4 MG/2 ML VIAL IV PRN ×2 (09:10→10:35)
[2017-08-20] MEDS ORDERED: LACTATED RINGERS 1,000 ML IV SCH ×2 (09:15→10:35)
--- NOTE | 2017-08-20 09:50 | Brief Operative Note ---
Date of procedure: 08/20/17 Pre-op diagnosis: recurrent rectal prolapse Post-op diagnosis: other (recurrent rectal prolapse) Procedure: sigmoid colectomy with colostomy and plication of rectal stump Grafts/Implants: No Anesthesia: GETA Findings: very redundant left colon with massively dilated redundant rectosigmoid colon Complications: none Surgeon: Fabiola Aden Estimated blood loss (cc): 20 Specimens Removed/Pathology: other (sigmoid colon segment) Condition: stable Disposition: PACU
[2017-08-20] MEDS ORDERED: LORazepam 2 MG/ML VIAL IV PRN (10:35)
[2017-08-20] MEDS: HYDROmorphone 2 MG/ML SYRINGE IV PRN ×3 (11:17→14:47)
[2017-08-20] MEDS: METOCLOPRAMIDE 10 MG/2 ML VIAL IV SCH ×3 (11:21→23:41)
[2017-08-20] MEDS ORDERED: METOCLOPRAMIDE 10 MG/2 ML VIAL IV SCH (12:00)
[2017-08-20] MEDS: PIPERACILLIN SODIUM/TAZOBACTAM 3.375 GM in DEXTROSE 5% IN WATER 100 ML IV SCH ×3 (14:34→23:41)
[2017-08-20] MEDS: PANTOPRAZOLE 40 MG VIAL IV SCH (17:15)
[2017-08-21] MEDS: 0.9 % SODIUM CHLORIDE 1,000 ML IV SCH ×2 (02:07→14:35)
[2017-08-21] MEDS: HYDROmorphone 2 MG/ML SYRINGE IV PRN (04:12)
[2017-08-21] MEDS: ACETAMINOPHEN 1,000 MG/100 ML BOTTLE IV PRN (04:35)
[2017-08-21] MEDS: PIPERACILLIN SODIUM/TAZOBACTAM 3.375 GM in DEXTROSE 5% IN WATER 100 ML IV SCH ×4 (05:50→23:32)
[2017-08-21] MEDS: METOCLOPRAMIDE 10 MG/2 ML VIAL IV SCH ×4 (05:50→23:31)
[2017-08-21] MEDS: PANTOPRAZOLE 40 MG VIAL IV SCH ×2 (07:13→16:26)
[2017-08-21] MEDS: ALBUTEROL SULFATE 1 PUFF INHALER IH SCH ×3 (08:02→21:18)
--- NOTE | 2017-08-21 13:47 | General Surgery Progress Note ---
Subjective Patient reports: feels better, still having pain, no flatus, no bowel movement, afebrile Narrative: Note initiated : 08/21/17 at 1:45 pm Service Date, if different from initiated Date: [] Patient: Margie Palm 81 y/o F admitted on 08/14/17 for Rectal Prolapse/ Constipation by Delayed Transit. Chief Complaint: [Patient is doing well. She is bright and alert and aware. She complains of hunger. Her pain is controlled. She denies nausea. She has not had gas or stool through her stoma. She denies chest pain or shortness of breath.] Objective Temp Pulse Resp BP Pulse Ox 98.7 F 75 16 126/60 97 08/21/17 12:00 08/21/17 04:00 08/21/17 12:00 08/21/17 12:00 08/21/17 12:00 - Additional Data Intake & Output - Last 24 hours: Intake & Output 08/19/17 08/20/17 08/21/17 08/22/17 05:59 05:59 05:59 05:59 Intake Total 2420 / 2420 2217 / 2217 2034 / 2034 100 / 100 Output Total 1575 / 1575 2475 / 2475 735 / 735 Balance 845 / 845 -258 / -258 1299 / 1299 100 / 100 Weight 97 lb 88 lb 93 lb 8 oz - General physical appearance well developed, well nourished, no distress, moderate pain, chronically ill - Eyes PERRL - ENT no congestion - Neck no venous distension - Respiratory normal expansion, normal respiratory effort, clear to auscultation - Cardiovascular Cardiovascular exam: Present: normal rate and rhythm, RRR, +S1, +S2. Absent: gallop, JVD, systolic murmur - Abdomen soft, tender (Mild tenderness along incision; incision looks good; stoma is healthy and red), distended ( she has mild distention but abdomen is soft; she has good active bowel sounds) - Rectum other (No evidence of prolapse of rectum at this time) - Neurologic normal coordination, normal sensation - Psychiatric oriented to time, oriented to person, oriented to place, speech is normal, memory intact - Labs 08/20/17 04:37 08/20/17 04:37 Assessment and Plan (1) Abnormal electrocardiogram [ECG] [EKG] Status: Acute Assessment and plan: no evidence of cardiac disease Current Visit: Yes (2) Constipation by delayed colonic transit Status: Acute Current Visit: Yes (3) Rectal prolapse Status: Acute Assessment and plan: Doing well status post segmental sigmoid resection with colostomy and proctopexy Current Visit: No (4) Chronic kidney disease, stage IV (severe) Status: Chronic Assessment and plan: Resolved renal failure Current Visit: No (5) COPD (chronic obstructive pulmonary disease) Problem details: 11/2012 Mild obstruction consistent with emphysema Status: Chronic Current Visit: No (6) Dehydration, mild Status: Resolved Assessment and plan: Resolved Current Visit: Yes (7) Depression Problem details: 1960s Managed well with venlafaxine Status: Chronic Current Visit: No (8) Gastroesophageal reflux Status: Chronic Current Visit: No (9) Weight loss Status: Chronic Current Visit: No - Time Spent With Patient Total time spent is greater than 50% in coordination of care (as documented) at patient's floor/unit and/or counseling patient:
[2017-08-22] MEDS: HYDROmorphone 2 MG/ML SYRINGE IV PRN (02:04)
[2017-08-22] MEDS: 0.9 % SODIUM CHLORIDE 1,000 ML IV SCH ×2 (05:03→16:14)
[2017-08-22] MEDS: PIPERACILLIN SODIUM/TAZOBACTAM 3.375 GM in DEXTROSE 5% IN WATER 100 ML IV SCH ×4 (05:18→23:51)
[2017-08-22] MEDS: METOCLOPRAMIDE 10 MG/2 ML VIAL IV SCH ×4 (05:21→23:51)
[2017-08-22 06:29] LABS: Basophils # (Auto) 0 K/mcL (0.0-0.3); Basophils % (Auto) 0.2 % (0.0-2.0); Eosinophils # (Auto) 0.1 K/mcL (0.0-0.7); Eosinophils % (Auto) 1.4 % (0.0-7.0); Granulocytes % (Auto) 83.6 % (38.0-78.0); Lymphocytes # (Auto) 0.7 K/mcL (1.5-4.8); Mean Cell Volume 87.3 fL (80.0-100.0); Mean Corpuscular HGB Conc 32.5 g/dL (31.0-36.0); Mean Corpuscular Hemoglobin 28.4 pg (26.0-34.0); Monocytes # (Auto) 0.5 K/mcL (0.1-0.9); Monocytes % (Auto) 5.8 % (1.0-12.0); Platelet Count 386 K/mcL (140-440); Red Cell Distribution Width 13.8 % (11.5-14.5)
[2017-08-22] MEDS: PANTOPRAZOLE 40 MG VIAL IV SCH ×2 (06:50→17:21)
[2017-08-22 07:15] LABS: ALT/SGPT 11 U/l (0-40); Albumin 2.2 gm/dL (3.2-5.2); Albumin/Globulin Ratio 0.8 (1.0-2.3); Alkaline Phosphatase 100 U/L (39-117); Bilirubin,Direct < 0.2 mg/dL (0.0-0.3); Blood Urea Nitrogen 17 mg/dl (8-23); Gamma Glutamyl Transpeptidase 15 U/L (5-36); Magnesium 1.7 mg/dL (1.6-2.5); Uric Acid 1.1 mg/dL (2.5-8.0)
[2017-08-22] MEDS: ALBUTEROL SULFATE 1 PUFF INHALER IH SCH ×3 (08:09→22:28)
--- NOTE | 2017-08-22 14:06 | General Surgery Progress Note ---
Subjective Patient reports: feels better, pain is less, flatus, bowel movement, afebrile Narrative: Note initiated : 08/22/17 at 2:04 pm Service Date, if different from initiated Date: [] Patient: Margie Palm 81 y/o F admitted on 08/14/17 for Rectal Prolapse/ Constipation by Delayed Transit. Chief Complaint: [Patient continues to improve. Her stoma is working nicely and her NG output is minimal. Her pain is better controlled. She denies chest pain or shortness of breath.] Objective Temp Pulse Resp BP Pulse Ox 98.5 F 90 16 125/61 95 08/22/17 11:41 08/22/17 03:39 08/22/17 11:41 08/22/17 11:41 08/22/17 11:41 - Additional Data Intake & Output - Last 24 hours: Intake & Output 08/20/17 08/21/17 08/22/17 08/23/17 05:59 05:59 05:59 05:59 Intake Total 2217 / 2217 2034 / 2034 2335 / 2335 100 / 100 Output Total 2475 / 2475 735 / 735 1390 / 1390 550 / 550 Balance -258 / -258 1299 / 1299 945 / 945 -450 / -450 Weight 88 lb 93 lb 8 oz 91 lb - General physical appearance well developed, no distress, chronically ill - Eyes PERRL - ENT no congestion - Neck no venous distension - Respiratory normal expansion, normal respiratory effort, clear to auscultation (Is) - Cardiovascular Cardiovascular exam: Present: normal rate and rhythm, RRR, +S1, +S2. Absent: JVD - Abdomen soft, bowel sounds (Is is), distended ( abdomen is mildly distended but soft. She has good active bowel sounds. Incision looks good and stoma looks good. Stoma is functioning with gas and stool in the appliance) - Rectum other (No evidence of rectal prolapse on exam) - Integumentary no rash, no growths, no abnormal pigmentation - Psychiatric oriented to time, oriented to person, oriented to place, speech is normal, memory intact - Labs 08/22/17 04:28 08/22/17 04:28 Diabetes panel 08/22/17 Range/Units 04:28 Sodium 139 (133-145) mmol/L Potassium 3.3 (3.3-5.1) mmol/L Chloride 102 (96-108) mmol/L Carbon Dioxide 28 (22-30) mmol/L BUN 17 (8-23) mg/dl Creatinine 0.7 (0.6-1.1) mg/dl Glucose 77 (70-105) mg/dL Calcium 7.7 L (8.6-10.4) mg/dl AST 20 (0-37) U/l ALT 11 (0-40) U/l Alkaline Phosphatase 100 (39-117) U/L Total Protein 4.9 L (5.9-8.4) gm/dL Albumin 2.2 L (3.2-5.2) gm/dL Triglycerides 91 (<150) mg/dl Calcium panel 08/22/17 Range/Units 04:28 Calcium 7.7 L (8.6-10.4) mg/dl Phosphorus 2.7 (2.7-4.5) mg/dL Albumin 2.2 L (3.2-5.2) gm/dL Pituitary panel 08/22/17 Range/Units 04:28 Sodium 139 (133-145) mmol/L Potassium 3.3 (3.3-5.1) mmol/L Chloride 102 (96-108) mmol/L Carbon Dioxide 28 (22-30) mmol/L BUN 17 (8-23) mg/dl Creatinine 0.7 (0.6-1.1) mg/dl Glucose 77 (70-105) mg/dL Calcium 7.7 L (8.6-10.4) mg/dl Adrenal panel 08/22/17 Range/Units 04:28 Sodium 139 (133-145) mmol/L Potassium 3.3 (3.3-5.1) mmol/L Chloride 102 (96-108) mmol/L Carbon Dioxide 28 (22-30) mmol/L BUN 17 (8-23) mg/dl Creatinine 0.7 (0.6-1.1) mg/dl Glucose 77 (70-105) mg/dL Calcium 7.7 L (8.6-10.4) mg/dl Total Bilirubin 0.3 (0.0-1.0) mg/dL AST 20 (0-37) U/l ALT 11 (0-40) U/l Alkaline Phosphatase 100 (39-117) U/L Total Protein 4.9 L (5.9-8.4) gm/dL Albumin 2.2 L (3.2-5.2) gm/dL Assessment and Plan (1) Abnormal electrocardiogram [ECG] [EKG] Status: Acute Assessment and plan: no evidence of cardiac disease Current Visit: Yes (2) Constipation by delayed colonic transit Status: Resolved Current Visit: Yes (3) Rectal prolapse Status: Acute Assessment and plan: Doing well status post segmental sigmoid resection with colostomy and proctopexy Nasogastric tube discontinued Clinton catheter discontinued Full liquid diet with Ensure Current Visit: No (4) Chronic kidney disease, stage IV (severe) Status: Chronic Assessment and plan: Resolved renal failure Current Visit: No (5) COPD (chronic obstructive pulmonary disease) Problem details: 11/2012 Mild obstruction consistent with emphysema Status: Chronic Current Visit: No (6) Dehydration, mild Status: Resolved Assessment and plan: Resolved Current Visit: Yes (7) Depression Problem details: 1960s Managed well with venlafaxine Status: Chronic Current Visit: No (8) Gastroesophageal reflux Status: Chronic Current Visit: No (9) Weight loss Status: Chronic Current Visit: No - Time Spent With Patient Total time spent is greater than 50% in coordination of care (as documented) at patient's floor/unit and/or counseling patient:
[2017-08-22] MEDS: ACETAMINOPHEN 1,000 MG/100 ML BOTTLE IV PRN (21:31)
[2017-08-23] MEDS: METOCLOPRAMIDE 10 MG/2 ML VIAL IV SCH ×3 (05:47→17:49)
[2017-08-23] MEDS: PIPERACILLIN SODIUM/TAZOBACTAM 3.375 GM in DEXTROSE 5% IN WATER 100 ML IV SCH ×3 (05:47→19:54)
[2017-08-23 06:16] LABS: Basophils # (Auto) 0 K/mcL (0.0-0.3); Basophils % (Auto) 0.1 % (0.0-2.0); Eosinophils # (Auto) 0.1 K/mcL (0.0-0.7); Eosinophils % (Auto) 1.3 % (0.0-7.0); Granulocytes % (Auto) 81.3 % (38.0-78.0); Lymphocytes # (Auto) 0.8 K/mcL (1.5-4.8); Lymphocytes % (Auto) 11.2 % (15.5-49.0); Mean Cell Volume 87.3 fL (80.0-100.0); Mean Corpuscular HGB Conc 32.3 g/dL (31.0-36.0); Mean Corpuscular Hemoglobin 28.2 pg (26.0-34.0); Monocytes # (Auto) 0.4 K/mcL (0.1-0.9); Monocytes % (Auto) 6.1 % (1.0-12.0); Platelet Count 393 K/mcL (140-440); Red Cell Distribution Width 13.9 % (11.5-14.5)
[2017-08-23] MEDS: PANTOPRAZOLE 40 MG VIAL IV SCH ×2 (06:55→16:49)
[2017-08-23] MEDS: 0.9 % SODIUM CHLORIDE 1,000 ML IV SCH ×2 (07:20→19:41)
[2017-08-23 07:24] LABS: ALT/SGPT 10 U/l (0-40); Albumin 2.2 gm/dL (3.2-5.2); Albumin/Globulin Ratio 0.8 (1.0-2.3); Alkaline Phosphatase 105 U/L (39-117); Bilirubin,Direct < 0.2 mg/dL (0.0-0.3); Blood Urea Nitrogen 17 mg/dl (8-23); Gamma Glutamyl Transpeptidase 18 U/L (5-36); Magnesium 1.8 mg/dL (1.6-2.5); Uric Acid 1.1 mg/dL (2.5-8.0)
[2017-08-23] MEDS: POTASSIUM CHLORIDE 20 MEQ TABLET PO SCH ×2 (08:20→16:51)
[2017-08-23] MEDS ORDERED: POTASSIUM PHOSPHATE 40 MEQ in DEXTROSE 5% IN WATER 500 ML IV ONE (09:00)
[2017-08-23] MEDS: ALBUTEROL SULFATE 1 PUFF INHALER IH SCH ×3 (09:43→23:18)
[2017-08-23] MEDS: HYDROmorphone 2 MG/ML SYRINGE IV PRN ×3 (10:50→19:53)
--- NOTE | 2017-08-23 11:15 | Surgical Pathology Report ---
HISTOLOGY SPECIMEN MICROSCOPIC DIAGNOSIS COLON, SIGMOID, SEGMENTAL RESECTION: -- SEGMENT OF COLON WITH FOCAL ULCERATION, MUCOSAL EDEMA, AND SEROSAL ADHESIONS, SEE COMMENT. -- VIABLE MUCOSAL MARGINS. -- NO EVIDENCE OF DYSPLASIA OR MALIGNANCY. (SE:sln) COMMENT: The clinical history of recurrent rectal prolapse with the surgical finding of dilated and redundant rectosigmoid colon is noted. Sections demonstrate a focal ulceration with associated mucosal edema. No evidence of malignancy is identified. Clinical correlation is recommended. PROCEDURAL IMPRESSION Rectal prolapse; constipation by delayed colon transit. GROSS DESCRIPTION Received in formalin, labeled sigmoid colon, is a 14.2 cm long, on average 3.3 cm diameter unoriented portion of large intestine. The external surface is ferrera-pink, smooth and glistening with few serosal adhesions seen centrally. The margins are stapled by 3.2 cm long and 3.5 cm long staple lines. A minimal amount of ferrera-yellow mesenteric fat is attached. The specimen is open along its length to reveal a minimal amount of ferrera-pink mucoid fecal material. The intestinal mucosa has the usual plicated pattern. No mucosal lesions are identified. The bowel wall is on average 0.5 cm in thickness. No lymph nodes are identified within the mesenteric fat. Relay Adjuster sections are submitted as follows: A1 - proximal and distal margins (unoriented); A2 - proximal serosal adhesions; A3 - random colon. (DMT:adj) Electronically Signed by: Bryanna Lopez D.O.
--- NOTE | 2017-08-23 17:27 | General Surgery Progress Note ---
Subjective Patient reports: feels better, pain is less, flatus, bowel movement, afebrile Narrative: Note initiated : 08/23/17 at 5:25 pm Service Date, if different from initiated Date: [] Patient: Margie Palm 81 y/o F admitted on 08/14/17 for Rectal Prolapse/ Constipation by Delayed Transit. Chief Complaint: [patient is doing very well. She is eating and ask for regular food. Her stoma is working nicely. She has not had any problems with rectal prolapse.] Objective Temp Pulse Resp BP Pulse Ox 98.0 F 71 22 152/75 97 08/23/17 16:00 08/23/17 16:00 08/23/17 16:00 08/23/17 16:45 08/23/17 16:00 - Additional Data Intake & Output - Last 24 hours: Intake & Output 08/21/17 08/22/17 08/23/17 08/24/17 05:59 05:59 05:59 05:59 Intake Total 2034 / 2034 2335 / 2335 2759 / 2759 1359.0909 / 1359.0909 Output Total 735 / 735 1390 / 1390 1240 / 1240 600 / 600 Balance 1299 / 1299 945 / 945 1519 / 6883 924.9237 / 759.0909 Weight 93 lb 8 oz 91 lb 103 lb 8 oz 103 lb 8 oz - General physical appearance no distress, no pain - Eyes PERRL - ENT nasal discharge - Neck no venous distension - Respiratory normal expansion, normal respiratory effort, clear to auscultation - Cardiovascular Cardiovascular exam: Present: normal rate and rhythm, RRR, +S1, +S2. Absent: gallop, JVD, tachycardia - Abdomen soft, non tender, distended (abdomen is distended with good active bowel sounds; ; she does not have tenderness; her stoma looks good) - Integumentary no rash, no growths, no abnormal pigmentation - Neurologic normal coordination, normal sensation - Musculoskeletal normal gait, normal posture - Psychiatric oriented to time, oriented to person, oriented to place, speech is normal - Labs 08/23/17 05:13 08/23/17 05:13 Diabetes panel 08/23/17 Range/Units 05:13 Sodium 139 (133-145) mmol/L Potassium 2.8 L* (3.3-5.1) mmol/L Chloride 102 (96-108) mmol/L Carbon Dioxide 27 (22-30) mmol/L BUN 17 (8-23) mg/dl Creatinine 0.7 (0.6-1.1) mg/dl Glucose 99 (70-105) mg/dL Calcium 7.9 L (8.6-10.4) mg/dl AST 17 (0-37) U/l ALT 10 (0-40) U/l Alkaline Phosphatase 105 (39-117) U/L Total Protein 4.8 L (5.9-8.4) gm/dL Albumin 2.2 L (3.2-5.2) gm/dL Triglycerides 73 (<150) mg/dl Calcium panel 08/23/17 Range/Units 05:13 Calcium 7.9 L (8.6-10.4) mg/dl Phosphorus 1.9 L (2.7-4.5) mg/dL Albumin 2.2 L (3.2-5.2) gm/dL Pituitary panel 08/23/17 Range/Units 05:13 Sodium 139 (133-145) mmol/L Potassium 2.8 L* (3.3-5.1) mmol/L Chloride 102 (96-108) mmol/L Carbon Dioxide 27 (22-30) mmol/L BUN 17 (8-23) mg/dl Creatinine 0.7 (0.6-1.1) mg/dl Glucose 99 (70-105) mg/dL Calcium 7.9 L (8.6-10.4) mg/dl Adrenal panel 08/23/17 Range/Units 05:13 Sodium 139 (133-145) mmol/L Potassium 2.8 L* (3.3-5.1) mmol/L Chloride 102 (96-108) mmol/L Carbon Dioxide 27 (22-30) mmol/L BUN 17 (8-23) mg/dl Creatinine 0.7 (0.6-1.1) mg/dl Glucose 99 (70-105) mg/dL Calcium 7.9 L (8.6-10.4) mg/dl Total Bilirubin 0.3 (0.0-1.0) mg/dL AST 17 (0-37) U/l ALT 10 (0-40) U/l Alkaline Phosphatase 105 (39-117) U/L Total Protein 4.8 L (5.9-8.4) gm/dL Albumin 2.2 L (3.2-5.2) gm/dL Assessment and Plan (1) Abnormal electrocardiogram [ECG] [EKG] Status: Acute Assessment and plan: no evidence of cardiac disease Current Visit: Yes (2) Constipation by delayed colonic transit Status: Resolved Current Visit: Yes (3) Rectal prolapse Status: Acute Assessment and plan: Doing well status post segmental sigmoid resection with colostomy and proctopexy advanced to soft diet Current Visit: No (4) Chronic kidney disease, stage IV (severe) Status: Chronic Assessment and plan: Resolved renal failure Current Visit: No (5) COPD (chronic obstructive pulmonary disease) Problem details: 11/2012 Mild obstruction consistent with emphysema Status: Chronic Current Visit: No (6) Dehydration, mild Status: Resolved Assessment and plan: Resolved Current Visit: Yes (7) Depression Problem details: 1960s Managed well with venlafaxine Status: Chronic Current Visit: No (8) Gastroesophageal reflux Status: Chronic Current Visit: No (9) Weight loss Status: Chronic Current Visit: No - Time Spent With Patient Total time spent is greater than 50% in coordination of care (as documented) at patient's floor/unit and/or counseling patient:
[2017-08-24] MEDS: METOCLOPRAMIDE 10 MG/2 ML VIAL IV SCH ×4 (00:21→17:57)
[2017-08-24] MEDS: PIPERACILLIN SODIUM/TAZOBACTAM 3.375 GM in DEXTROSE 5% IN WATER 100 ML IV SCH ×4 (00:21→17:58)
[2017-08-24] MEDS: 0.9 % SODIUM CHLORIDE 1,000 ML IV SCH ×2 (04:00→10:42)
[2017-08-24 07:07] LABS: ALT/SGPT 11 U/l (0-40); Albumin 2.1 gm/dL (3.2-5.2); Albumin/Globulin Ratio 0.7 (1.0-2.3); Alkaline Phosphatase 98 U/L (39-117); Basophils # (Auto) 0 K/mcL (0.0-0.3); Basophils % (Auto) 0.2 % (0.0-2.0); Bilirubin,Direct < 0.2 mg/dL (0.0-0.3); Blood Urea Nitrogen 12 mg/dl (8-23); Eosinophils # (Auto) 0.2 K/mcL (0.0-0.7); Eosinophils % (Auto) 3.7 % (0.0-7.0); Gamma Glutamyl Transpeptidase 16 U/L (5-36); Granulocytes % (Auto) 68.7 % (38.0-78.0); Lymphocytes # (Auto) 1.3 K/mcL (1.5-4.8); Lymphocytes % (Auto) 18.8 % (15.5-49.0); Magnesium 1.8 mg/dL (1.6-2.5); Mean Cell Volume 85.9 fL (80.0-100.0); Mean Corpuscular HGB Conc 32.7 g/dL (31.0-36.0); Mean Corpuscular Hemoglobin 28.1 pg (26.0-34.0); Monocytes # (Auto) 0.6 K/mcL (0.1-0.9); Monocytes % (Auto) 8.6 % (1.0-12.0); Platelet Count 445 K/mcL (140-440); Red Cell Distribution Width 13.9 % (11.5-14.5); Uric Acid 0.9 mg/dL (2.5-8.0)
[2017-08-24] MEDS: POTASSIUM CHLORIDE 20 MEQ TABLET PO SCH ×2 (08:16→17:15)
[2017-08-24] MEDS: PANTOPRAZOLE 40 MG VIAL IV SCH ×2 (08:21→17:15)
[2017-08-24] MEDS: ALBUTEROL SULFATE 1 PUFF INHALER IH SCH ×3 (11:57→20:04)
--- NOTE | 2017-08-24 13:42 | General Surgery Progress Note ---
Subjective Patient reports: feels better, pain is less, tolerating a regular diet, flatus, bowel movement, afebrile Narrative: Note initiated : 08/24/17 at 1:40 pm Service Date, if different from initiated Date: [] Patient: Margie Palm 81 y/o F admitted on 08/14/17 for Rectal Prolapse/ Constipation by Delayed Transit. Chief Complaint: [Patient is doing well. She has not had prolapse of her rectum. She is tolerating a GI soft diet without difficulty. She has no other complaints.] Objective Temp Pulse Resp BP Pulse Ox 98.6 F 70 14 175/77 95 08/24/17 11:28 08/24/17 11:28 08/24/17 11:28 08/24/17 11:28 08/24/17 11:28 - Additional Data Intake & Output - Last 24 hours: Intake & Output 08/22/17 08/23/17 08/24/17 08/25/17 05:59 05:59 05:59 05:59 Intake Total 2335 / 2335 2759 / 2759 2859.0909 / 2859.0909 100 / 100 Output Total 1390 / 1390 1240 / 1240 750 / 750 154 / 154 Balance 945 / 945 1519 / 1519 2109.0909 / 2109.0909 -54 / -54 Weight 91 lb 103 lb 8 oz 103 lb - General physical appearance no distress - Eyes PERRL - ENT no congestion - Neck no venous distension - Respiratory normal expansion, normal respiratory effort, clear to auscultation - Cardiovascular Cardiovascular exam: Present: normal rate and rhythm, RRR, +S1, +S2. Absent: gallop, irregular rhythm, JVD, systolic murmur, tachycardia - Abdomen soft, tender (Moderate tenderness of her incision; her stoma looks good and is functioning normally; good active bowel sounds present; much less distention) - Rectum other - Integumentary no rash, no growths, no abnormal pigmentation - Neurologic other (Intermittent confusion but easily reoriented) - Psychiatric oriented to time, oriented to person, oriented to place, speech is normal - Labs 08/24/17 04:50 08/24/17 04:50 Diabetes panel 08/24/17 Range/Units 04:50 Sodium 142 (133-145) mmol/L Potassium 3.5 (3.3-5.1) mmol/L Chloride 104 (96-108) mmol/L Carbon Dioxide 31 H (22-30) mmol/L BUN 12 (8-23) mg/dl Creatinine 0.8 (0.6-1.1) mg/dl Glucose 90 (70-105) mg/dL Calcium 7.9 L (8.6-10.4) mg/dl AST 16 (0-37) U/l ALT 11 (0-40) U/l Alkaline Phosphatase 98 (39-117) U/L Total Protein 5.0 L (5.9-8.4) gm/dL Albumin 2.1 L (3.2-5.2) gm/dL Triglycerides 102 (<150) mg/dl Calcium panel 08/24/17 Range/Units 04:50 Calcium 7.9 L (8.6-10.4) mg/dl Phosphorus 1.6 L (2.7-4.5) mg/dL Albumin 2.1 L (3.2-5.2) gm/dL Pituitary panel 08/24/17 Range/Units 04:50 Sodium 142 (133-145) mmol/L Potassium 3.5 (3.3-5.1) mmol/L Chloride 104 (96-108) mmol/L Carbon Dioxide 31 H (22-30) mmol/L BUN 12 (8-23) mg/dl Creatinine 0.8 (0.6-1.1) mg/dl Glucose 90 (70-105) mg/dL Calcium 7.9 L (8.6-10.4) mg/dl Adrenal panel 08/24/17 Range/Units 04:50 Sodium 142 (133-145) mmol/L Potassium 3.5 (3.3-5.1) mmol/L Chloride 104 (96-108) mmol/L Carbon Dioxide 31 H (22-30) mmol/L BUN 12 (8-23) mg/dl Creatinine 0.8 (0.6-1.1) mg/dl Glucose 90 (70-105) mg/dL Calcium 7.9 L (8.6-10.4) mg/dl Total Bilirubin 0.3 (0.0-1.0) mg/dL AST 16 (0-37) U/l ALT 11 (0-40) U/l Alkaline Phosphatase 98 (39-117) U/L Total Protein 5.0 L (5.9-8.4) gm/dL Albumin 2.1 L (3.2-5.2) gm/dL Assessment and Plan (1) Abnormal electrocardiogram [ECG] [EKG] Status: Acute Assessment and plan: no evidence of cardiac disease Current Visit: Yes (2) Constipation by delayed colonic transit Status: Resolved Current Visit: Yes (3) Rectal prolapse Status: Acute Assessment and plan: Doing well status post segmental sigmoid resection with colostomy and proctopexy advanced to soft diet Current Visit: No (4) Chronic kidney disease, stage IV (severe) Status: Chronic Assessment and plan: Resolved renal failure Current Visit: No (5) COPD (chronic obstructive pulmonary disease) Problem details: 11/2012 Mild obstruction consistent with emphysema Status: Chronic Current Visit: No (6) Dehydration, mild Status: Resolved Assessment and plan: Resolved Current Visit: Yes (7) Depression Problem details: 1960s Managed well with venlafaxine Status: Chronic Current Visit: No (8) Gastroesophageal reflux Status: Chronic Current Visit: No (9) Weight loss Status: Chronic Current Visit: No - Time Spent With Patient Total time spent is greater than 50% in coordination of care (as documented) at patient's floor/unit and/or counseling patient:
[2017-08-24] MEDS: ACETAMINOPHEN 1,000 MG/100 ML BOTTLE IV PRN (20:11)
[2017-08-25] MEDS: PIPERACILLIN SODIUM/TAZOBACTAM 3.375 GM in DEXTROSE 5% IN WATER 100 ML IV SCH ×4 (00:05→18:12)
[2017-08-25] MEDS: METOCLOPRAMIDE 10 MG/2 ML VIAL IV SCH ×3 (05:30→12:25)
[2017-08-25 05:33] LABS: Basophils # (Auto) 0 K/mcL (0.0-0.3); Basophils % (Auto) 0.5 % (0.0-2.0); Eosinophils # (Auto) 0.4 K/mcL (0.0-0.7); Eosinophils % (Auto) 7.3 % (0.0-7.0); Granulocytes % (Auto) 60.2 % (38.0-78.0); Lymphocytes # (Auto) 1.3 K/mcL (1.5-4.8); Lymphocytes % (Auto) 23.6 % (15.5-49.0); Mean Cell Volume 86.2 fL (80.0-100.0); Mean Corpuscular HGB Conc 32.7 g/dL (31.0-36.0); Mean Corpuscular Hemoglobin 28.1 pg (26.0-34.0); Monocytes # (Auto) 0.5 K/mcL (0.1-0.9); Monocytes % (Auto) 8.4 % (1.0-12.0); Platelet Count 469 K/mcL (140-440); RBC 3.09 M/mcL (4.00-5.20); Red Cell Distribution Width 13.7 % (11.5-14.5)
[2017-08-25 05:45] LABS: ALT/SGPT 10 U/l (0-40); Albumin 2.3 gm/dL (3.2-5.2); Albumin/Globulin Ratio 0.8 (1.0-2.3); Alkaline Phosphatase 106 U/L (39-117); Bilirubin,Direct < 0.2 mg/dL (0.0-0.3); Blood Urea Nitrogen 11 mg/dl (8-23); Gamma Glutamyl Transpeptidase 18 U/L (5-36); Magnesium 1.8 mg/dL (1.6-2.5); Uric Acid 0.8 mg/dL (2.5-8.0)
[2017-08-25] MEDS: PANTOPRAZOLE 40 MG VIAL IV SCH (07:08)
[2017-08-25] MEDS ORDERED: ONDANSETRON ODT 4 MG TABLET SL PRN (07:32)
[2017-08-25] MEDS: PANTOPRAZOLE 40 MG TABLET PO SCH ×2 (07:58→17:09)
[2017-08-25] MEDS: POTASSIUM PHOSPHATE 40 MEQ in DEXTROSE 5% IN WATER 500 ML IV SCH ×2 (09:52→17:09)
[2017-08-25] MEDS: POTASSIUM CHLORIDE 20 MEQ PACKET PO SCH ×2 (09:54→17:10)
[2017-08-25] MEDS: ALBUTEROL SULFATE 1 PUFF INHALER IH SCH ×3 (11:22→20:28)
[2017-08-25] MEDS: POTASSIUM CHLORIDE 20 MEQ TABLET PO SCH (11:23)
--- NOTE | 2017-08-25 12:46 | General Surgery Progress Note ---
Subjective Patient reports: feels better, pain is less, tolerating a regular diet, flatus, bowel movement, afebrile Narrative: Note initiated : 08/25/17 at 12:44 pm Service Date, if different from initiated Date: [] Patient: Margie Palm 81 y/o F admitted on 08/14/17 for Rectal Prolapse/ Constipation by Delayed Transit. Chief Complaint: [Patient is doing well. She is tolerating regular diet without difficulty. She has good movements through her stoma. She has not had any rectal prolapse. Patient is stable enough for transfer to intermediate. This will be arranged tomorrow.] Objective Temp Pulse Resp BP Pulse Ox 98.5 F 72 14 172/73 95 08/25/17 11:49 08/25/17 11:49 08/25/17 11:49 08/25/17 11:49 08/25/17 11:49 - Additional Data Intake & Output - Last 24 hours: Intake & Output 08/23/17 08/24/17 08/25/17 08/26/17 05:59 05:59 05:59 05:59 Intake Total 2759 / 2759 2859.0909 / 2859.0909 1460 / 1460 336 / 336 Output Total 1240 / 1240 750 / 750 259 / 259 28 / Balance 1519 / 1519 2109.0909 / 2109.0909 1201 / 1201 308 / 308 Weight 103 lb 8 oz 103 lb 104 lb - ENT no congestion - Neck no venous distension - Respiratory normal respiratory effort, clear to auscultation - Cardiovascular Cardiovascular exam: Present: normal rate and rhythm, RRR, +S1, +S2. Absent: gallop, systolic murmur, tachycardia - Abdomen soft, non tender (Abdominal exam is benign. She does not have any significant tenderness. Her incision looks good and her stoma is functioning normally.) - Rectum other ( No evidence of prolapse) - Integumentary no rash, no growths, no abnormal pigmentation - Neurologic normal coordination, normal sensation - Psychiatric oriented to time, oriented to person, oriented to place, speech is normal - Labs 08/25/17 04:37 08/25/17 04:37 Diabetes panel 08/25/17 Range/Units 04:37 Sodium 140 (133-145) mmol/L Potassium 3.6 (3.3-5.1) mmol/L Chloride 103 (96-108) mmol/L Carbon Dioxide 30 (22-30) mmol/L BUN 11 (8-23) mg/dl Creatinine 0.8 (0.6-1.1) mg/dl Glucose 87 (70-105) mg/dL Calcium 8.2 L (8.6-10.4) mg/dl AST 19 (0-37) U/l ALT 10 (0-40) U/l Alkaline Phosphatase 106 (39-117) U/L Total Protein 5.1 L (5.9-8.4) gm/dL Albumin 2.3 L (3.2-5.2) gm/dL Triglycerides 111 (<150) mg/dl Calcium panel 08/25/17 Range/Units 04:37 Calcium 8.2 L (8.6-10.4) mg/dl Phosphorus 2.0 L (2.7-4.5) mg/dL Albumin 2.3 L (3.2-5.2) gm/dL Pituitary panel 08/25/17 Range/Units 04:37 Sodium 140 (133-145) mmol/L Potassium 3.6 (3.3-5.1) mmol/L Chloride 103 (96-108) mmol/L Carbon Dioxide 30 (22-30) mmol/L BUN 11 (8-23) mg/dl Creatinine 0.8 (0.6-1.1) mg/dl Glucose 87 (70-105) mg/dL Calcium 8.2 L (8.6-10.4) mg/dl Adrenal panel 08/25/17 Range/Units 04:37 Sodium 140 (133-145) mmol/L Potassium 3.6 (3.3-5.1) mmol/L Chloride 103 (96-108) mmol/L Carbon Dioxide 30 (22-30) mmol/L BUN 11 (8-23) mg/dl Creatinine 0.8 (0.6-1.1) mg/dl Glucose 87 (70-105) mg/dL Calcium 8.2 L (8.6-10.4) mg/dl Total Bilirubin 0.3 (0.0-1.0) mg/dL AST 19 (0-37) U/l ALT 10 (0-40) U/l Alkaline Phosphatase 106 (39-117) U/L Total Protein 5.1 L (5.9-8.4) gm/dL Albumin 2.3 L (3.2-5.2) gm/dL Assessment and Plan (1) Abnormal electrocardiogram [ECG] [EKG] Status: Acute Assessment and plan: no evidence of cardiac disease Current Visit: Yes (2) Constipation by delayed colonic transit Status: Resolved Current Visit: Yes (3) Rectal prolapse Status: Acute Assessment and plan: Doing well status post segmental sigmoid resection with colostomy and proctopexy advanced to regular diet Current Visit: No (4) Chronic kidney disease, stage IV (severe) Status: Chronic Assessment and plan: Resolved renal failure Current Visit: No (5) COPD (chronic obstructive pulmonary disease) Problem details: 11/2012 Mild obstruction consistent with emphysema Status: Chronic Current Visit: No (6) Dehydration, mild Status: Resolved Assessment and plan: Resolved Current Visit: Yes (7) Depression Problem details: 1960s Managed well with venlafaxine Status: Chronic Current Visit: No (8) Gastroesophageal reflux Status: Chronic Current Visit: No (9) Weight loss Status: Chronic Current Visit: No - Time Spent With Patient Total time spent is greater than 50% in coordination of care (as documented) at patient's floor/unit and/or counseling patient:
[2017-08-25] MEDS: oxyCODONE/APAP 5/325MG TABLET PO PRN (13:47)
[2017-08-25] MEDS: METOCLOPRAMIDE 10 MG TABLET PO SCH ×2 (17:09→20:28)
[2017-08-26] MEDS: PIPERACILLIN SODIUM/TAZOBACTAM 3.375 GM in DEXTROSE 5% IN WATER 100 ML IV SCH ×3 (00:09→12:59)
[2017-08-26 06:45] LABS: Basophils # (Auto) 0 K/mcL (0.0-0.3); Basophils % (Auto) 0.5 % (0.0-2.0); Eosinophils # (Auto) 0.6 K/mcL (0.0-0.7); Eosinophils % (Auto) 7.2 % (0.0-7.0); Granulocytes % (Auto) 64.4 % (38.0-78.0); Lymphocytes # (Auto) 1.6 K/mcL (1.5-4.8); Mean Cell Volume 86.5 fL (80.0-100.0); Mean Corpuscular HGB Conc 32.5 g/dL (31.0-36.0); Mean Corpuscular Hemoglobin 28.1 pg (26.0-34.0); Monocytes # (Auto) 0.6 K/mcL (0.1-0.9); Monocytes % (Auto) 7.9 % (1.0-12.0); Platelet Count 501 K/mcL (140-440); RBC 3.28 M/mcL (4.00-5.20)
[2017-08-26 07:21] LABS: ALT/SGPT 12 U/l (0-40); Albumin 2.7 gm/dL (3.2-5.2); Alkaline Phosphatase 115 U/L (39-117); Bilirubin,Direct < 0.2 mg/dL (0.0-0.3); Blood Urea Nitrogen 14 mg/dl (8-23); Gamma Glutamyl Transpeptidase 21 U/L (5-36); Magnesium 1.7 mg/dL (1.6-2.5); Uric Acid 1.2 mg/dL (2.5-8.0)
[2017-08-26] MEDS: METOCLOPRAMIDE 10 MG TABLET PO SCH ×2 (08:09→12:59)
[2017-08-26] MEDS: PANTOPRAZOLE 40 MG TABLET PO SCH (08:09)
[2017-08-26] MEDS: POTASSIUM CHLORIDE 20 MEQ PACKET PO SCH (08:09)
[2017-08-26] MEDS: ALBUTEROL SULFATE 1 PUFF INHALER IH SCH ×2 (10:47→13:40)
--- NOTE | 2017-08-26 13:09 | Discharge Summary ---
Providers - Providers Patient information: Note initiated : 08/26/17 at 1:04 pm Service Date, if different from initiated Date: [] Patient: Margie Palm 81 y/o F admitted on 08/14/17 for Rectal Prolapse/ Constipation by Delayed Transit. Chief Complaint: [] Date of admission: 08/14/17 Discharge date: 08/26/17 Attending physician: Fabiola Aden Hospitalization Hospital course: 81-year-old female admitted on 14 August with recurrent prolapse of her rectosigmoid with colonic obstruction dehydration and constipation. She has been symptomatic for at least 4 months and has had recurrent severe prolapse. I had evaluated her in the emergency room with reduction of the prolapse 3 times. She is very cachectic and was felt to be a poor candidate for operative therapy. I tried to have her referred to a colon and rectal surgery group with a never accepted her. She has been refusing to eat because each time that she passes flatus or have a bowel movement her rectum prolapses and she becomes obstructed. She was seen in the emergency room and was noted to be dehydrated. She had a 10 inch segment of the prolapsed rectosigmoid which was extremely edematous and ulcerated. This was reduced in the emergency room and the patient was admitted. After her dehydration was treated and her renal failure improved a discussion was had with the family and they finally consented to permanent colostomy with plication of the rectal segment. This was carried out on 20 August. She tolerated surgery without complications and has fully recovered. She however is extremely weak and will need rehabilitation and shelter management for few weeks to allow her to be able to do her activities of daily living. Patient is stable and is transferred to the nursing care facility. Discharge diagnosis: Colorectal prolapse Secondary discharge diagnosis: Dehydration Chronic kidney disease 3 Chronic constipation Chronic obstructive lung disease Depression Gastroesophageal reflux disease Weight loss due to poor intake Reason for admission: Rectal prolapse with colonic obstruction Procedures: Segmental rectosigmoid resection with end colostomy and plication of rectal stump Complications: None Exam Temp Pulse Resp BP Pulse Ox 98.1 F 85 16 176/77 93 08/26/17 07:32 08/26/17 04:00 08/26/17 07:32 08/26/17 07:32 08/26/17 07:32 - General physical appearance well developed, well nourished, no distress, cachectic, chronically ill - Eyes PERRL, normal ocular movement - ENT normal pinna, normal nares, normal mucosa, no hearing loss, no congestion - Head Head exam IM: Present: atraumatic, normocephalic - Neck no masses, no bruits, trachea midline, no lymphadectomy, no venous distension - Cardiovascular Cardiovascular exam IM: Present: normal rate and rhythm, RRR, +S1, +S2. Absent : gallop, JVD, tachycardia - Respiratory normal expansion, normal respiratory effort, clear to percussion, clear to auscultation - Abdomen Abdomen: Present: soft, non tender, bowel sounds, distended (Abdomen is mildly distended but she has good active bowel sounds; her incision is healing uneventfully; the stoma is functioning nicely) Hernia: Present: none - Genitourinary Present: normal external genitalia - Rectum Rectum: Present: no hemorrhoids, no tenderness, no masses, other (Poor sphincter tone; no evidence of prolapse) - Integumentary Present: no rash, no growths, no abnormal pigmentation - Neurologic Present: normal coordination, normal sensation, memory loss - Musculoskeletal Present: normal posture, other (Unsteady gait without assistance) - Psychiatric Present: oriented to time, oriented to person, oriented to place, speech is normal, other (Short-term memory loss) Discharge Plan - Patient/Caregiver Discharge Instructions Activity: as per physical therapy, increase activity as tolerated Diet: Regular Diet Additional Instructions: Sascha are to be removed in 1 week Prescriptions: oxyCODONE HCL/ACETAMINOPHEN [Endocet 10-325 mg Tablet] 1 tab PO Q4H PRN #30 tab PRN Reason: Pain Potassium Chloride [Kdur] 40 meq PO BIDCC #20 tab - Follow up Plan Follow up with: Katy Norman, KAMLA, JAILER [Primary Care Provider] - Disposition: Home, Self-Care Prognosis: Good Rehab Potential: Good I certify that the patient requires SNF services.: Yes Overall status at discharge: patient is not back to baseline Pending Studies Resuscitation Status Full Code Diet Low Sodium Diet (2gm) Start WedAug 25 729 Albuterol Sulfate (Ventolin) 2 puff IH TID PAERSH Last Admin: 08/26/17 10:47 Dose: Not Given Admin: 08/25/17 20:28 Dose: Not Given Admin: 08/25/17 17:01 Dose: Not Given Admin: 08/25/17 11:22 Dose: Not Given Admin: 08/24/17 20:04 Dose: Not Given Admin: 08/24/17 16:37 Dose: Not Given Admin: 08/24/17 11:57 Dose: Not Given Admin: 08/23/17 23:18 Dose: Admin: 08/23/17 14:09 Dose: Not Given Admin: 08/23/17 09:43 Dose: Not Given Admin: 08/22/17 22:28 Dose: Not Given Admin: 08/22/17 14:34 Dose: Not Given Admin: 08/22/17 08:09 Dose: Not Given Admin: 08/21/17 21:18 Dose: Not Given Admin: 08/21/17 14:30 Dose: Not Given Admin: 08/21/17 08:02 Dose: Not Given Admin: 08/20/17 23:40 Dose: Not Given Admin: 08/20/17 16:52 Dose: Not Given Hydromorphone HCl (Dilaudid) 0.5 mg IV Q2HP PRN PRN Reason: Pain Last Admin: 08/23/17 19:53 Dose: 0.5 mg Admin: 08/23/17 16:49 Dose: 0.5 mg Admin: 08/23/17 10:50 Dose: 0.5 mg Admin: 08/22/17 02:04 Dose: 0.5 mg Admin: 08/21/17 04:12 Dose: 0.5 mg Admin: 08/20/17 14:30 Dose: 0.5 mg Admin: 08/20/17 11:17 Dose: 0.5 mg Piperacillin Sod/Tazobactam (Sod 3.375 gm/ Dextrose) 100 mls @ 100 mls/hr IV Q6H PARESH Last Admin: 08/26/17 12:59 Dose: 100 mls/hr Infusion: 08/26/17 06:35 Dose: 100 mls/hr Admin: 08/26/17 05:35 Dose: 100 mls/hr Infusion: 08/26/17 01:10 Dose: 0 mls/hr Admin: 08/26/17 00:09 Dose: 100 mls/hr Infusion: 08/25/17 19:12 Dose: 0 mls/hr Admin: 08/25/17 18:12 Dose: 100 mls/hr Infusion: 08/25/17 15:59 Dose: 0 mls/hr Admin: 08/25/17 14:30 Dose: 100 mls/hr Infusion: 08/25/17 06:30 Dose: 0 mls/hr Admin: 08/25/17 05:33 Dose: 100 mls/hr Infusion: 08/25/17 01:05 Dose: 100 mls/hr Admin: 08/25/17 00:05 Dose: 100 mls/hr Infusion: 08/24/17 18:58 Dose: 100 mls/hr Admin: 08/24/17 17:58 Dose: 100 mls/hr Infusion: 08/24/17 12:55 Dose: 0 mls/hr Admin: 08/24/17 11:57 Dose: 100 mls/hr Infusion: 08/24/17 06:25 Dose: 0 mls/hr Admin: 08/24/17 05:23 Dose: 100 mls/hr Infusion: 08/24/17 01:21 Dose: 100 mls/hr Admin: 08/24/17 00:21 Dose: 100 mls/hr Infusion: 08/23/17 20:55 Dose: 0 mls/hr Admin: 08/23/17 19:54 Dose: 100 mls/hr Infusion: 08/23/17 17:05 Dose: 0 mls/hr Admin: 08/23/17 14:05 Dose: 100 mls/hr Infusion: 08/23/17 06:47 Dose: 0 mls/hr Admin: 08/23/17 05:47 Dose: 100 mls/hr Infusion: 08/23/17 00:51 Dose: 100 mls/hr Admin: 08/22/17 23:51 Dose: 100 mls/hr Infusion: 08/22/17 18:25 Dose: 0 mls/hr Admin: 08/22/17 17:21 Dose: 100 mls/hr Infusion: 08/22/17 12:47 Dose: 0 mls/hr Admin: 08/22/17 11:47 Dose: 100 mls/hr Infusion: 08/22/17 06:18 Dose: 0 mls/hr Admin: 08/22/17 05:18 Dose: 100 mls/hr Infusion: 08/22/17 00:35 Dose: 0 mls/hr Admin: 08/21/17 23:32 Dose: 100 mls/hr Infusion: 08/21/17 18:40 Dose: 0 mls/hr Admin: 08/21/17 17:34 Dose: 100 mls/hr Infusion: 08/21/17 13:15 Dose: 0 mls/hr Admin: 08/21/17 12:12 Dose: 100 mls/hr Infusion: 08/21/17 06:50 Dose: 0 mls/hr Admin: 08/21/17 05:50 Dose: 100 mls/hr Infusion: 08/21/17 00:45 Dose: 0 mls/hr Admin: 08/20/17 23:41 Dose: 100 mls/hr Infusion: 08/20/17 18:10 Dose: 100 mls/hr Admin: 08/20/17 17:10 Dose: 100 mls/hr Infusion: 08/20/17 15:34 Dose: 100 mls/hr Admin: 08/20/17 14:34 Dose: 100 mls/hr Metoclopramide HCl (Reglan) 10 mg PO ACHS [facility] Last Admin: 08/26/17 12:59 Dose: 10 mg Admin: 08/26/17 08:09 Dose: 10 mg Admin: 08/25/17 20:28 Dose: 10 mg Admin: 08/25/17 17:09 Dose: 10 mg Oxycodone/Acetaminophen (Percocet 5-325 Mg) 2 tab PO Q4HP PRN PRN Reason: PAIN LEVEL 3-6 Last Admin: 08/25/17 13:47 Dose: 1 tab Pantoprazole Sodium (Protonix) 40 mg PO BIDAC PARESH Last Admin: 08/26/17 08:09 Dose: 40 mg Admin: 08/25/17 17:09 Dose: 40 mg Admin: 08/25/17 07:58 Dose: Potassium Chloride (Klor-Con) 40 meq PO BIDCC PARESH Last Admin: 08/26/17 08:09 Dose: 40 meq Admin: 08/25/17 17:10 Dose: 40 meq Admin: 08/25/17 09:54 Dose: 40 meq Shift Summary 08/26/17 03:43 Shift Summary by Pina Vickers Addendum entered by Pina Vickers R.N. 08/26/17 04:15: SBP's have been in the 150's-160's through night. Otherwise VSS on RA. Original Note: Slept well through night. No complaints of pain. LAC IV SL and patent; RFA IV SL and patent. Intermittent antibiotics. Incontinent of urine, small amounts of clear mucous out of the rectum. Colostomy put out about 100 of liquid brown stool, stoma is beefy red. Midline abdominal incision with sascha and Tegaderm , BT active, stomach round and a bit distended. Up with 1 assist and FWW. Alert and oriented to all but date/time but is forgetful. Bed alarm in place for safety. Tolerating Low Sodium Diet without difficulties. Scheduled to DC to [facility] today. Initialized on 08/26/17 03:43 - END OF NOTE
--- NOTE | 2017-08-26 15:14 | Operative Note ---
DATE OF OPERATION: 08/20/2017 PREOPERATIVE DIAGNOSIS: Recurrent rectal prolapse. POSTOPERATIVE DIAGNOSIS: Recurrent rectal prolapse. PROCEDURE: Sigmoid colectomy with colostomy and plication of rectal stump. SURGEON: Fabiola Aden M.D. FINDINGS: Very redundant left colon with massively dilated redundant rectosigmoid colon. DESCRIPTION: Under general anesthesia, the patient's abdomen was prepped and draped in the sterile field. Midline incision was made. The Bookwalter retractor was placed. Inspection of the abdomen was unremarkable except for a very redundant left colon with a massively dilated redundant rectosigmoid with thickening of the rectum above and below the peritoneal reflection. Upper abdomen was unremarkable. The redundant left colon was mobilized along its lateral peritoneal attachments. A 12-inch segment of sigmoid above the peritoneal reflection was transected. The proximal and distal colon was transected using the Contour stapler. The mesocolon was controlled using LigaSure. The specimen was passed off. Opening for the end of the proximal sigmoid was made in the left lower quadrant in standard fashion. The bowel was brought through this opening. The wall of the bowel was sutured with multiple sutures of 3-0 silk placed circumferentially because this is to be permanent. The rectal stump was stapled with a TA 60 stapler to get good closure. It was then sutured using running 2-0 Prolene to the mesentery at the base of the small bowel. Next, one suture of 0 Prolene was placed in each corner and was anchored to the lateral sidewall on each side through the muscle and fascia. This was designed to give adequate anchoring while the area scars in. Sponge, needle, instrument, and blade counts were verified as correct. The peritoneum was closed with a running #1 Prolene. Subcutaneous tissue was closed with 2-0 Monocryl. Skin was closed with rowan. The incision was covered. The wall of the bowel for the stoma was sutured to the rectus fascia using interrupted 3-0 silk. The end of the bowel was sutured to the dermis circumferentially using running locking 3-0 Monocryl. The patient tolerated the procedure well. Sterile dressing was placed over the incision and a stoma appliance was placed over the stoma. The patient tolerated the procedure well. She was awakened, extubated and transferred to the postanesthetic care unit in stable, satisfactory condition. LCS:remy Job ID: [id number] Doc ID: [id number] Fabiola Aden M.D.
== END 2017-08-26 14:00 | disposition home or self-care (01) | DRG 330 ==
LOC: ED 13:25 → MEDSUR 16:33
PROVIDERS: ADMIT Family Medicine Adult Medicine; ATTEND Family Medicine Adult Medicine